=== PATIENT | female | born 1975 ===

== ENCOUNTER 2016-09-02 14:06 | Emergency (ER) | payer SELFPAY ==
[2016-09-02 14:06] VITALS: BMI 28.9
[2016-09-02 14:15] VITALS: BP 118/65; PULSE 78; RESP 18; TEMP 97; O2SAT 100
[2016-09-02] MEDS ORDERED: Sodium Chloride 0.9% 1,000 ML IV STA (15:27)
--- NOTE | 2016-09-02 15:49 | ED PDOC ---
HPI: Female Pain Time Seen by Provider: 09/02/16 14:27 Chief Complaint (Nursing): Female Genitourinary Chief Complaint (Provider): female genitourinary History Per: Loading Inspector (martinez [id number]) History/Exam Limitations: language barrier (surinamese ) Onset/Duration Of Symptoms: Days (x 14) Current Symptoms Are (Timing): Still Present Additional Complaint(s): Dasha Pinedo is a 41 year old female, with a previous medical history of kidney stones, who presents to the ED with complaints of dysuria ongoing for the past 2 weeks. Pt reports associated symptoms of left sided abdominal pain, fevers, chills and nausea. Pt denies any vomiting, diarrhea, chest pain or shortness of breath. Pt reports symptoms are similar to those of kidney stones. Pt denies ever needing to undergo surgery for kidney stones and states she usually passes them on her own. PMD: none provided Abnormal Vaginal Bleeding: No Past Medical History Reviewed: Historical Data, Nursing Documentation, Vital Signs Vital Signs: Last Vital Signs Temp 97.0 F L 09/02/16 14:12 Pulse 78 09/02/16 14:12 Resp 18 09/02/16 14:12 BP 118/65 09/02/16 14:12 Pulse Ox 100 09/02/16 14:12 - Medical History PMH: Arthritis (per old chart but pt denies), Gastritis, Kidney Stones, Pneumonia - Surgical History Surgical History: Cholecystectomy, (x4) - Family History Family History: States: Unknown Family Hx - Immunization History Hx Tetanus Toxoid Vaccination: No Hx Influenza Vaccination: Yes Hx Pneumococcal Vaccination: No - Home Medications Home Medications: Ambulatory Orders Medication Instructions Recorded Naproxen [Naprosyn] 500 mg PO BID PRN #15 tablet 01/30/16 Famotidine [Pepcid] 20 mg PO DAILY PRN #10 tab 05/30/16 Ibuprofen [Motrin Tab] 600 mg PO Q6 PRN #30 tab 05/30/16 Nitrofurantoin Macrocrystals 100 mg PO BID #10 cap 07/03/16 [Macrobid] Ciprofloxacin [Cipro] 500 mg PO BID #14 tab 09/02/16 Ibuprofen [Motrin] 600 mg PO TID PRN #30 tab 09/02/16 Phenazopyridine [Phenazopyridine 200 mg PO TID #6 tab 09/02/16 HCl] - Allergies Allergies/Adverse Reactions: Allergies Allergy/AdvReac Type Severity Reaction Status Date / Time Penicillins Allergy RASH Verified 07/02/16 23:56 Review of Systems ROS Statement: Except As Marked, All Systems Reviewed And Found Negative Constitutional: Positive for: Fever, Chills Cardiovascular: Negative for: Chest Pain Respiratory: Negative for: Shortness of Breath Gastrointestinal: Positive for: Nausea, Abdominal Pain. Negative for: Vomiting , Diarrhea Physical Exam - Reviewed Nursing Documentation Reviewed: Yes Vital Signs Reviewed: Yes - Physical Exam Appears: Positive for: Non-toxic, In Acute Distress (moderate painful ) Head Exam: Positive for: ATRAUMATIC, NORMAL INSPECTION, NORMOCEPHALIC Skin: Positive for: Normal Color, Warm (to touch ), Dry Eye Exam: Positive for: EOMI, Normal appearance, PERRL ENT: Positive for: Normal ENT Inspection Neck: Positive for: Normal, Painless ROM Cardiovascular/Chest: Positive for: Regular Rate, Rhythm Respiratory: Positive for: CNT, Normal Breath Sounds Gastrointestinal/Abdominal: Positive for: Normal Exam, Bowel Sounds, Soft, Tenderness (LLQ) Back: Positive for: R CVA Tenderness Extremity: Positive for: Normal ROM Neurologic/Psych: Positive for: Alert, Oriented - Laboratory Results Result Diagrams: 09/02/16 15:30 09/02/16 15:30 - ECG O2 Sat by Pulse Oximetry: 100 (RA) Pulse Ox Interpretation: Normal Medical Decision Making Medical Decision Making: Initial Impression: UTI clinical pylo r/o obstructive stone Initial Plan: * CT abd pelvis w/o contrast * labs * lact acid * lipase * urine * morphine * IV NS 1,000 ml at 1,000 ml/hr * toradol * zofran * blood culture * urine culture * urinalysis * reevaluation 16:42 CT abd pelvis FINDINGS: LOWER THORAX: There is bibasilar subsegmental atelectasis. LIVER: Normal in size. No gross lesion or ductal dilatation. GALLBLADDER AND BILE DUCTS: Surgically absent. PANCREAS: Normal in size. No gross lesion or ductal dilatation. SPLEEN: Normal in size. ADRENALS: Normal in size without discrete nodule. KIDNEYS AND URETERS: Both kidneys are normal in size without hydronephrosis. There are few punctate nonobstructing stones in both kidneys, the largest in the left upper pole measures 3 mm. There is no hydronephrosis. The ureters are not dilated. VASCULATURE: No aortic aneurysm. BOWEL: The small bowel loops are normal in caliber. There is large amount of stool in the ascending colon and moderate amount of stool in the transverse and left hemicolon. APPENDIX: Normal appendix. PERITONEUM: No free fluid. No free air. LYMPH NODES: There are small subcentimeter lymph nodes in the right lower quadrant, likely reactive. BLADDER: Normal. REPRODUCTIVE: The uterus is normal in size. There is fluid within the endometrial cavity. Please correlate with menstrual history. BONES: Within normal limits for the patient's age. OTHER FINDINGS: None. IMPRESSION: 1. Punctate nonobstructing stones in both kidneys, the largest in the left upper pole measures 3 mm. No evidence of hydronephrosis or obstructive uropathy. 2. Constipation. No evidence of bowel obstruction Scribe Attestation: Documented by Latesha Peterson, acting as a scribe for Flaco Lantigua PA-C. Provider Scribe Attestation: All medical record entries made by the Scribe were at my direction and personally dictated by me. I have reviewed the chart and agree that the record accurately reflects my personal performance of the history, physical exam, medical decision making, and the department course for this patient. I have also personally directed, reviewed, and agree with the discharge instructions and disposition. Labs reviewed with no acute finding. normal LA, UTI. cipro ordered. CT as above with no obstructing stones. discussed with her that she could have passed a stone. given normal LA, no wbc count, no fever and pain controlled no indication for inpatient treatment. will treat for clinical pyelonephritis follow up discussed, return information discussed, _ stable for discharge. Disposition - Clinical Impression Clinical Impression: Dysuria, Pyelonephritis, Renal stone - Patient ED Disposition Is Patient to be Admitted: No Counseled Patient/Family Regarding: Studies Performed, Diagnosis, Need For Followup, Rx Given - Disposition Referrals: Santino Villarreal MD [Medical Doctor] - Disposition: Routine/Home Disposition Time: 19:26 Condition: IMPROVED Additional Instructions: follow up with primary care doctor and urologist return for severe pain,fevers or any new concerns lots of fluids Prescriptions: Ciprofloxacin [Cipro] 500 mg PO BID #14 tab Ibuprofen [Motrin] 600 mg PO TID PRN #30 tab PRN Reason: Other Phenazopyridine [Phenazopyridine HCl] 200 mg PO TID #6 tab Instructions: Renal Colic (ED), Kidney Stones (ED), Acute Pyelonephritis (ED) Print Language: KISWAHILI
[2016-09-02 16:09] LABS: BASO % 0.5 % (0.0-2.0); EOS # 0.4 K/uL (0.0-0.7); EOS % 4.5 % (0.0-4.0); HEMATOCRIT 36.3 % (34.0-47.0); LYMPH # 1.7 K/uL (1.0-4.3); LYMPH % 19.6 % (20.0-40.0); MEAN CELL VOLUME 82.9 fl (81.0-99.0); MEAN CORPUSCULAR HGB CONC 32.6 g/dL (33.0-37.0); MONO # 0.5 K/uL (0.0-0.8); MONO % 6.2 % (0.0-10.0); NEUT # 5.9 K/uL (1.8-7.0); NEUT % 69.2 % (50.0-75.0); RED CELL DISTRIBUTION WIDTH 18.3 % (11.5-14.5); WHITE BLOOD COUNT 8.6 K/uL (4.8-10.8)
[2016-09-02 16:19] LABS: ALB/GLOB RATIO 1.3 (1.0-2.1); ALKALINE PHOSPHATASE 106 U/L (38-126); ALT/SGPT 34 U/L (9-52); AST/SGOT 25 U/L (14-36); BILIRUBIN,TOTAL < 0.1 mg/dl (0.2-1.3); BLOOD UREA NITROGEN 14 mg/dl (7-17); CARBON DIOXIDE 27 mmol/L (22-30); CHLORIDE 104 mmol/L (98-107); GFR AFRICAN-AMERICAN > 60; GLUCOSE,RANDOM 104 mg/dL (65-105); LIPASE 67 U/L (23-300); POTASSIUM 4.2 MMOL/L (3.6-5.0); SODIUM 136 mmol/l (132-148); TOTAL PROTEIN 6.9 G/DL (6.3-8.2)
--- NOTE | 2016-09-02 16:43 | CT ---
PROCEDURE: CT Abdomen and Pelvis without intravenous contrast HISTORY: Left flank pain and dysuria COMPARISON: 07/03/2016 TECHNIQUE: Helical CT scan of the abdomen and pelvis was performed for targeted evaluation of urinary calculi without administration of oral or intravenous contrast. Coronal and sagittal reformatted images were obtained. Radiation dose: Total exam DLP = 807.11 mGy-cm. FINDINGS: LOWER THORAX: There is bibasilar subsegmental atelectasis. LIVER: Normal in size. No gross lesion or ductal dilatation. GALLBLADDER AND BILE DUCTS: Surgically absent. PANCREAS: Normal in size. No gross lesion or ductal dilatation. SPLEEN: Normal in size. ADRENALS: Normal in size without discrete nodule. KIDNEYS AND URETERS: Both kidneys are normal in size without hydronephrosis. There are few punctate nonobstructing stones in both kidneys, the largest in the left upper pole measures 3 mm. There is no hydronephrosis. The ureters are not dilated. VASCULATURE: No aortic aneurysm. BOWEL: The small bowel loops are normal in caliber. There is large amount of stool in the ascending colon and moderate amount of stool in the transverse and left hemicolon. APPENDIX: Normal appendix. PERITONEUM: No free fluid. No free air. LYMPH NODES: There are small subcentimeter lymph nodes in the right lower quadrant, likely reactive. BLADDER: Normal. REPRODUCTIVE: The uterus is normal in size. There is fluid within the endometrial cavity. Please correlate with menstrual history. BONES: Within normal limits for the patient's age. OTHER FINDINGS: None. IMPRESSION: 1. Punctate nonobstructing stones in both kidneys, the largest in the left upper pole measures 3 mm. No evidence of hydronephrosis or obstructive uropathy. 2. Constipation. No evidence of bowel obstruction
[2016-09-02 17:05] LABS: RBC URINE 11 /hpf (0-3); URINE BACTERIA FEW (<OCC); URINE BILIRUBIN NEGATIVE (NEGATIVE); URINE BLOOD SMALL (NEGATIVE); URINE COLOR AMBER (YELLOW); URINE GLUCOSE (UA) NEG (Normal); URINE KETONE NEGATIVE (NEGATIVE); URINE LEUKOCYTE ESTERASE TRACE Leu/uL (Negative); URINE PROTEIN NEGATIVE (NEGATIVE); WBC URINE 31 /hpf (0-5)
[2016-09-02] MEDS ORDERED: Ciprofloxacin 400mg/200ml D5W 200 ML IVPB STA (17:42)
[2016-09-02] MEDS ORDERED: Ciprofloxacin 400mg/200ml D5W 200 ML IVPB ONE (17:51)
== END 2016-09-02 19:27 | disposition home or self-care (01) ==
LOC: H.ER 14:06
DX: N12 Tubulo-interstitial nephritis, not specified as acute or chronic (principal); N20.0 Calculus of kidney; R30.0 Dysuria

== ENCOUNTER 2016-09-23 14:43 | Emergency (ER) | payer OTHER, SELFPAY ==
[2016-09-23 14:43] VITALS: BMI 28.9
[2016-09-23 14:56] VITALS: BP 115/65; PULSE 68; RESP 18; TEMP 98.1; O2SAT 100
--- NOTE | 2016-09-23 15:11 | ED PDOC ---
HPI: General Adult Time Seen by Provider: 09/23/16 15:00 Chief Complaint (Nursing): Female Genitourinary Chief Complaint (Provider): back pain History Per: Patient History/Exam Limitations: no limitations Additional Complaint(s): 41yo female comes to the ED complaining of back pain, dysuria for 2 days. States she had similar symptoms 15 days ago when she was diagnosed with kidney stones. She has chills and nausea but not vomit. Patient recently started Bactrim per Dr. Joseph urology. She is also taking tylenol, advil but pain is still there. PMD: kendall molina [facility] Past Medical History Reviewed: Historical Data, Nursing Documentation, Vital Signs Vital Signs: Last Vital Signs Temp 98.1 F 09/23/16 14:53 Pulse 68 09/23/16 14:53 Resp 18 09/23/16 14:53 BP 115/65 09/23/16 14:53 Pulse Ox 100 09/23/16 15:19 - Medical History PMH: Arthritis (per old chart but pt denies), Gastritis, Kidney Stones, Pneumonia - Surgical History Surgical History: Cholecystectomy, (x4) - Family History Family History: States: Unknown Family Hx - Immunization History Hx Tetanus Toxoid Vaccination: No Hx Influenza Vaccination: Yes Hx Pneumococcal Vaccination: No - Home Medications Home Medications: Ambulatory Orders Medication Instructions Recorded Naproxen [Naprosyn] 500 mg PO BID PRN #15 tablet 01/30/16 Famotidine [Pepcid] 20 mg PO DAILY PRN #10 tab 05/30/16 Ibuprofen [Motrin Tab] 600 mg PO Q6 PRN #30 tab 05/30/16 Nitrofurantoin Macrocrystals 100 mg PO BID #10 cap 07/03/16 [Macrobid] Ciprofloxacin [Cipro] 500 mg PO BID #14 tab 09/02/16 Ibuprofen [Motrin] 600 mg PO TID PRN #30 tab 09/02/16 Phenazopyridine [Phenazopyridine 200 mg PO TID #6 tab 09/02/16 HCl] oxyCODONE/Acetaminophen [Percocet 1 tab PO Q6 PRN #12 tab 09/23/16 5/325 mg Tab] - Allergies Allergies/Adverse Reactions: Allergies Allergy/AdvReac Type Severity Reaction Status Date / Time Penicillins Allergy RASH Verified 07/02/16 23:56 Review of Systems ROS Statement: Except As Marked, All Systems Reviewed And Found Negative Genitourinary Female: Positive for: Dysuria Musculoskeletal: Positive for: Back Pain Physical Exam - Reviewed Nursing Documentation Reviewed: Yes Vital Signs Reviewed: Yes - Physical Exam Appears: Positive for: Well, Non-toxic, No Acute Distress Head Exam: Positive for: ATRAUMATIC, NORMAL INSPECTION, NORMOCEPHALIC Skin: Positive for: Warm, Dry Eye Exam: Positive for: EOMI, PERRL Cardiovascular/Chest: Positive for: Regular Rate, Rhythm Respiratory: Positive for: Normal Breath Sounds. Negative for: Rales, Rhonchi, Wheezing Gastrointestinal/Abdominal: Positive for: Soft. Negative for: Tenderness Back: Positive for: Other (bilateral CVA tenderness right greater than left) - Laboratory Results Result Diagrams: 09/23/16 15:30 09/23/16 15:30 - ECG O2 Sat by Pulse Oximetry: 100 (RA) Pulse Ox Interpretation: Normal Medical Decision Making Medical Decision Making: CT abd/pel IMPRESSION from 09/02/16: 1. Punctate nonobstructing stones in both kidneys, the largest in the left upper pole measures 3 mm. No evidence of hydronephrosis or obstructive uropathy. 2. Constipation. No evidence of bowel obstruction 18[address] CT abdomen [address] Disposition - Clinical Impression Clinical Impression: Urinary tract infection - Patient ED Disposition Is Patient to be Admitted: No Doctor Will See Patient In The: Office Counseled Patient/Family Regarding: Studies Performed, Diagnosis, Need For Followup - Disposition Referrals: Alejandro Joseph Jr., MD [Staff Provider] - Disposition: Routine/Home Disposition Time: 19:00 Condition: GOOD Additional Instructions: Continue bactrim at home. Return for worsening. Follow up with your PCP in 2-3 days. Prescriptions: oxyCODONE/Acetaminophen [Percocet 5/325 mg Tab] 1 tab PO Q6 PRN #12 tab PRN Reason: Pain, Moderate (4-7) Instructions: Urinary Tract Infection in Women (ED) Forms: [facility] ED School/Work Excuse Print Language: WOLOF Additional Comments - Additional Comments Additional Comments: Scribe Attestation: Documented by Panchito Ziegler acting as a scribe for Gerard Sanders MD. Scribe Attestation: All medical record entries made by the Scribe were at my direction and personally dictated by me. I have reviewed the chart and agree that the record accurately reflects my personal performance of the history, physical exam, medical decision making, and the department course for this patient. I have also personally directed, reviewed, and agree with the discharge instructions and disposition.
[2016-09-23] MEDS ORDERED: Sodium Chloride 0.9% 1,000 ML IV STA (15:17)
[2016-09-23 16:00] LABS: BASO % 0.5 % (0.0-2.0); EOS # 0.3 K/uL (0.0-0.7); EOS % 3.6 % (0.0-4.0); HEMATOCRIT 36.8 % (34.0-47.0); LYMPH # 1.7 K/uL (1.0-4.3); LYMPH % 18.9 % (20.0-40.0); MEAN CELL VOLUME 83.4 fl (81.0-99.0); MEAN CORPUSCULAR HEMOGLOBIN 27.6 pg (27.0-31.0); MEAN PLATELET VOLUME 7.8 fl (7.2-11.7); MONO # 0.5 K/uL (0.0-0.8); MONO % 5.1 % (0.0-10.0); NEUT # 6.5 K/uL (1.8-7.0); NEUT % 71.9 % (50.0-75.0); RED CELL DISTRIBUTION WIDTH 16.3 % (11.5-14.5); WHITE BLOOD COUNT 9.1 K/uL (4.8-10.8)
[2016-09-23 16:12] LABS: RBC URINE 3 /hpf (0-3); URINE BILIRUBIN NEGATIVE (NEGATIVE); URINE BLOOD NEGATIVE (NEGATIVE); URINE COLOR BLUE (YELLOW); URINE GLUCOSE (UA) NEG (Normal); URINE KETONE NEGATIVE (NEGATIVE); URINE LEUKOCYTE ESTERASE SMALL Leu/uL (Negative); URINE PROTEIN NEGATIVE (NEGATIVE); URINE UROBILINOGEN 0.2-1.0 mg/dL (0.2-1.0); WBC URINE 24 /hpf (0-5)
[2016-09-23 16:18] LABS: BLOOD UREA NITROGEN 13 mg/dl (7-17); CALCIUM 9.2 mg/dL (8.4-10.2); CARBON DIOXIDE 25 mmol/L (22-30); CHLORIDE 105 mmol/L (98-107); GFR AFRICAN-AMERICAN > 60; GLUCOSE,RANDOM 110 mg/dL (65-105); POTASSIUM 4.1 MMOL/L (3.6-5.0); SODIUM 142 mmol/l (132-148)
[2016-09-23] MEDS ORDERED: Iohexol 300 100 ML IJ ONE (17:21)
[2016-09-23] MEDS ORDERED: Sodium Chloride 0.9% 50 ML IV ONE (17:21)
--- NOTE | 2016-09-23 18:34 | CT ---
PROCEDURE: CT Abdomen and Pelvis with contrast HISTORY: back pain COMPARISON: None. TECHNIQUE: Contrast dose: 90 cc of Omni 300 Radiation dose: Total exam DLP = 875 mGy-cm. This CT exam was performed using one or more of the following dose reduction techniques: Automated exposure control, adjustment of the mA and/or kV according to patient size, and/or use of iterative reconstruction technique. FINDINGS: LOWER THORAX: Unremarkable. LIVER: Unremarkable. No gross lesion or ductal dilatation. GALLBLADDER AND BILE DUCTS: Unremarkable. PANCREAS: Unremarkable. No gross lesion or ductal dilatation. SPLEEN: Unremarkable. ADRENALS: Unremarkable. No mass. KIDNEYS AND URETERS: Unremarkable. No hydronephrosis. No solid mass. Small nonobstructing stone in the lower pole of the right kidney. VASCULATURE: Unremarkable. No aortic aneurysm. BOWEL: Unremarkable. No obstruction. No gross mural thickening. APPENDIX: Normal appendix. PERITONEUM: Unremarkable. No free fluid. No free air. LYMPH NODES: Unremarkable. No enlarged lymph nodes. BLADDER: Unremarkable. REPRODUCTIVE: Unremarkable. BONES: No acute fracture. OTHER FINDINGS: None. IMPRESSION: Unremarkable contrast enhanced CT of the abdomen and pelvis.
== END 2016-09-23 20:30 | disposition home or self-care (01) ==
LOC: H.ER 14:43
DX: N39.0 Urinary tract infection, site not specified (principal); M54.9 Dorsalgia, unspecified; R11.0 Nausea; R30.0 Dysuria

== ENCOUNTER 2016-11-09 14:38 | Emergency (ER) | payer SELFPAY ==
[2016-11-09 14:39] VITALS: BMI 28.9
[2016-11-09] MEDS ORDERED: Sodium Chloride 0.9% 1,000 ML IV STA (16:54)
[2016-11-09] MEDS ORDERED: Alum-Mag Hydrox-Simethicone Susp (30 mL) PO STA (17:18)
[2016-11-09] MEDS ORDERED: Alum-Mag Hydrox-Simethicone Susp (30 mL) ONE (17:19)
[2016-11-09 17:56] LABS: BASO # 0.1 K/uL (0.0-0.2); BASO % 0.9 % (0.0-2.0); EOS # 0.3 K/uL (0.0-0.7); HEMATOCRIT 38.6 % (34.0-47.0); LYMPH # 1.6 K/uL (1.0-4.3); LYMPH % 21.8 % (20.0-40.0); MEAN CELL VOLUME 84.7 fl (81.0-99.0); MEAN CORPUSCULAR HEMOGLOBIN 27.4 pg (27.0-31.0); MEAN CORPUSCULAR HGB CONC 32.3 g/dL (33.0-37.0); MEAN PLATELET VOLUME 7.9 fl (7.2-11.7); MONO # 0.5 K/uL (0.0-0.8); MONO % 6.5 % (0.0-10.0); NEUT # 4.9 K/uL (1.8-7.0); NEUT % 66.8 % (50.0-75.0); NRBC % 0.1 % (0.0-0.0); RED CELL DISTRIBUTION WIDTH 14.7 % (11.5-14.5); WHITE BLOOD COUNT 7.3 K/uL (4.8-10.8)
[2016-11-09 18:01] LABS: RBC URINE 2 /hpf (0-3); URINE BILIRUBIN NEGATIVE (NEGATIVE); URINE BLOOD SMALL (NEGATIVE); URINE COLOR AMBER (YELLOW); URINE GLUCOSE (UA) NEG (Normal); URINE KETONE NEGATIVE (NEGATIVE); URINE LEUKOCYTE ESTERASE MOD Leu/uL (Negative); URINE PROTEIN NEGATIVE (NEGATIVE); URINE UROBILINOGEN 0.2-1.0 mg/dL (0.2-1.0); WBC URINE 22 /hpf (0-5)
[2016-11-09 18:03] LABS: URINE BACTERIA FEW (<OCC)
[2016-11-09 18:04] LABS: ALB/GLOB RATIO 1.4 (1.0-2.1); ALKALINE PHOSPHATASE 74 U/L (38-126); ALT/SGPT 36 U/L (9-52); AST/SGOT 31 U/L (14-36); BILIRUBIN,TOTAL 0.3 mg/dl (0.2-1.3); BLOOD UREA NITROGEN 12 mg/dl (7-17); CARBON DIOXIDE 25 mmol/L (22-30); CHLORIDE 104 mmol/L (98-107); GFR AFRICAN-AMERICAN > 60; GLUCOSE,RANDOM 91 mg/dL (65-105); LIPASE 90 U/L (23-300); SODIUM 139 mmol/l (132-148); TOTAL PROTEIN 7.5 G/DL (6.3-8.2)
--- NOTE | 2016-11-09 18:49 | ED PDOC ---
HPI: Abdomen Time Seen by Provider: 11/09/16 16:50 Chief Complaint (Nursing): Abdominal Pain Chief Complaint (Provider): Abdominal Pain History Per: Patient History/Exam Limitations: no limitations Onset/Duration Of Symptoms: Days (x3) Current Symptoms Are (Timing): Still Present Additional Complaint(s): Dasha Pinedo is a 41 year old female with a history of gastritis that presents to the ED with a chief complaint of intermittent, non-radiating, burning, epigastric pain that she has had for the past three days, as well as non-radiating suprapubic discomfort described as "pressure" with associated dysuria that she has had for the past one day. Patient reports that she took Motrin at home, but that it did not help to relieve her symptoms. She denies any fever, chills, or back pain, and does not take any daily medications. Past Medical History Reviewed: Historical Data, Nursing Documentation, Vital Signs Vital Signs: Last Vital Signs Temp 98.7 F 11/09/16 15:13 Pulse 75 11/09/16 15:13 Resp 20 11/09/16 15:13 BP 104/64 11/09/16 15:13 Pulse Ox 100 11/09/16 15:13 - Medical History PMH: Arthritis (per old chart but pt denies), Gastritis, Kidney Stones, Pneumonia - Surgical History Surgical History: Cholecystectomy, (x4) - Family History Family History: States: Unknown Family Hx - Social History Current smoker - smoking cessation education provided: No Alcohol: None Drugs: Denies - Immunization History Hx Tetanus Toxoid Vaccination: No Hx Influenza Vaccination: Yes Hx Pneumococcal Vaccination: No - Home Medications Home Medications: Ambulatory Orders Medication Instructions Recorded Naproxen [Naprosyn] 500 mg PO BID PRN #15 tablet 01/30/16 Famotidine [Pepcid] 20 mg PO DAILY PRN #10 tab 05/30/16 Ibuprofen [Motrin Tab] 600 mg PO Q6 PRN #30 tab 05/30/16 Nitrofurantoin Macrocrystals 100 mg PO BID #10 cap 07/03/16 [Macrobid] Ciprofloxacin [Cipro] 500 mg PO BID #14 tab 09/02/16 Ibuprofen [Motrin] 600 mg PO TID PRN #30 tab 09/02/16 Phenazopyridine [Phenazopyridine 200 mg PO TID #6 tab 09/02/16 HCl] oxyCODONE/Acetaminophen [Percocet 1 tab PO Q6 PRN #12 tab 09/23/16 5/325 mg Tab] Ciprofloxacin [Cipro] 500 mg PO BID #10 tab 11/09/16 Famotidine [Pepcid] 20 mg PO BID #28 tab 11/09/16 - Allergies Allergies/Adverse Reactions: Allergies Allergy/AdvReac Type Severity Reaction Status Date / Time Penicillins Allergy RASH Verified 07/02/16 23:56 Review of Systems Constitutional: Negative for: Fever, Chills Gastrointestinal: Positive for: Abdominal Pain (epigastric pain), Other ( suprapubic discomfort) Genitourinary Female: Positive for: Dysuria Musculoskeletal: Negative for: Back Pain Physical Exam - Reviewed Nursing Documentation Reviewed: Yes Vital Signs Reviewed: Yes - Physical Exam Appears: Positive for: Non-toxic, No Acute Distress Head Exam: Positive for: ATRAUMATIC, NORMOCEPHALIC Skin: Positive for: Normal Color, Warm Eye Exam: Positive for: Normal appearance, EOMI, PERRL Cardiovascular/Chest: Positive for: Regular Rate, Rhythm. Negative for: Murmur Respiratory: Positive for: Normal Breath Sounds. Negative for: Wheezing Gastrointestinal/Abdominal: Positive for: Soft, Tenderness (mild epigastric and suprapubic tenderness). Negative for: Guarding, Rebound Back: Positive for: Normal Inspection. Negative for: L CVA Tenderness, R CVA Tenderness Neurologic/Psych: Positive for: Alert, Oriented - Laboratory Results Result Diagrams: 11/09/16 17:45 11/09/16 17:45 - ECG O2 Sat by Pulse Oximetry: 100 (RA) Pulse Ox Interpretation: Normal Medical Decision Making Medical Decision Makin:50 Impression: Gastritis/UTI Plan: * Aluminum Hydroxide/Magnesium (30 ml PO) * Pepcid 20 mg PO * Urine * Urine Culture * Reevaluation 18:43 Patient given Rx for Cipro and Pepcid, advised to follow up with clinic. Patient stable for discharge home. Scribe Attestation: Documented by Sophia Schwarz, acting as a scribe for Anna Moe PA-C. Provider Scribe Attestation: All medical record entries made by the Scribe were at my direction and personally dictated by me. I have reviewed the chart and agree that the record accurately reflects my personal performance of the history, physical exam, medical decision making, and the department course for this patient. I have also personally directed, reviewed, and agree with the discharge instructions and disposition. Disposition - Clinical Impression Clinical Impression: Gastritis, UTI (urinary tract infection) - Patient ED Disposition Is Patient to be Admitted: No Counseled Patient/Family Regarding: Rx Given - Disposition Referrals: [facility] [Outside] Disposition Time: 18:43 Condition: STABLE Prescriptions: Ciprofloxacin [Cipro] 500 mg PO BID #10 tab Famotidine [Pepcid] 20 mg PO BID #28 tab Instructions: Gastritis (ED), Urinary Tract Infection in Women (ED) Print Language: ICELANDIC
[2016-11-09 18:59] VITALS: BP 110/68; PULSE 70; RESP 18; TEMP 98
[2016-11-09 19:03] VITALS: O2SAT 100
== END 2016-11-09 19:01 | disposition home or self-care (01) ==
LOC: H.ER 14:38
DX: K29.70 Gastritis, unspecified, without bleeding (principal); N39.0 Urinary tract infection, site not specified; R30.0 Dysuria

== ENCOUNTER 2017-02-25 23:35 | Emergency (ER) | payer OTHER ==
[2017-02-25 23:35] VITALS: BMI 28.9
[2017-02-25 23:51] VITALS: BP 115/67; PULSE 74; RESP 18; TEMP 98.6; O2SAT 100
[2017-02-26 00:33] LABS: BASO # 0.1 K/uL (0.0-0.2); BASO % 1.1 % (0.0-2.0); EOS # 0.4 K/uL (0.0-0.7); EOS % 5.9 % (0.0-4.0); HEMATOCRIT 34.8 % (34.0-47.0); LYMPH # 2.1 K/uL (1.0-4.3); MEAN CORPUSCULAR HEMOGLOBIN 26.7 pg (27.0-31.0); MEAN CORPUSCULAR HGB CONC 32.7 g/dL (33.0-37.0); MEAN PLATELET VOLUME 7.5 fl (7.2-11.7); MONO # 0.7 K/uL (0.0-0.8); MONO % 9.8 % (0.0-10.0); NEUT # 3.9 K/uL (1.8-7.0); NEUT % 54.2 % (50.0-75.0); NRBC % 0.1 % (0.0-0.0); RED CELL DISTRIBUTION WIDTH 14.6 % (11.5-14.5); WHITE BLOOD COUNT 7.2 K/uL (4.8-10.8)
[2017-02-26 00:36] LABS: MEAN CELL VOLUME 81.6 fl (81.0-99.0)
--- NOTE | 2017-02-26 00:36 | ED PDOC ---
HPI: Abdomen Time Seen by Provider: 02/25/17 23:59 Chief Complaint (Nursing): Abdominal Pain Chief Complaint (Provider): Abdominal Pain History Per: Patient History/Exam Limitations: no limitations Onset/Duration Of Symptoms: Days (x2) Current Symptoms Are (Timing): Still Present Additional Complaint(s): Dasha Pinedo is a 41 year old female, status post colostomy, who presents to the emergency department with a complaint of a "cramping" abdominal pain associated with constipation ongoing for 2 days. Denied nausea, vomiting, fever or chills. PMD: Radhika Toussaint MD Past Medical History Reviewed: Historical Data, Nursing Documentation, Vital Signs Vital Signs: Last Vital Signs Temp 98.6 F 02/25/17 23:47 Pulse 74 02/25/17 23:47 Resp 18 02/25/17 23:47 BP 115/67 02/25/17 23:47 Pulse Ox 100 02/26/17 00:38 - Medical History PMH: Arthritis (per old chart but pt denies), Gastritis, Kidney Stones, Pneumonia - Surgical History Surgical History: Cholecystectomy, (x4) - Family History Family History: States: Unknown Family Hx - Immunization History Hx Tetanus Toxoid Vaccination: No Hx Influenza Vaccination: Yes Hx Pneumococcal Vaccination: No - Home Medications Home Medications: Ambulatory Orders Medication Instructions Recorded Naproxen [Naprosyn] 500 mg PO BID PRN #15 tablet 01/30/16 Famotidine [Pepcid] 20 mg PO DAILY PRN #10 tab 05/30/16 Ibuprofen [Motrin Tab] 600 mg PO Q6 PRN #30 tab 05/30/16 Nitrofurantoin Macrocrystals 100 mg PO BID #10 cap 07/03/16 [Macrobid] Ciprofloxacin [Cipro] 500 mg PO BID #14 tab 09/02/16 Ibuprofen [Motrin] 600 mg PO TID PRN #30 tab 09/02/16 Phenazopyridine [Phenazopyridine 200 mg PO TID #6 tab 09/02/16 HCl] oxyCODONE/Acetaminophen [Percocet 1 tab PO Q6 PRN #12 tab 09/23/16 5/325 mg Tab] Ciprofloxacin [Cipro] 500 mg PO BID #10 tab 11/09/16 Famotidine [Pepcid] 20 mg PO BID #28 tab 11/09/16 Dicyclomine [Bentyl] 10 mg PO QID #20 cap 02/26/17 Docusate [Colace] 100 mg PO BID #20 cap 02/26/17 Polyethylene Glycol 3350 [Miralax] 17 gm PO DAILY #12 powd.pack 02/26/17 - Allergies Allergies/Adverse Reactions: Allergies Allergy/AdvReac Type Severity Reaction Status Date / Time Penicillins Allergy RASH Verified 07/02/16 23:56 Review of Systems ROS Statement: Except As Marked, All Systems Reviewed And Found Negative Constitutional: Negative for: Fever, Chills Gastrointestinal: Positive for: Abdominal Pain ("pressure"), Constipation, Other (retention). Negative for: Nausea, Vomiting Physical Exam - Reviewed Nursing Documentation Reviewed: Yes Vital Signs Reviewed: Yes - Physical Exam Appears: Positive for: Well, Non-toxic, No Acute Distress Head Exam: Positive for: ATRAUMATIC, NORMAL INSPECTION, NORMOCEPHALIC Cardiovascular/Chest: Positive for: Regular Rate, Rhythm. Negative for: Chest Non Tender Respiratory: Positive for: Normal Breath Sounds. Negative for: Crackles, Rales , Rhonchi, Wheezing, Respiratory Distress Gastrointestinal/Abdominal: Positive for: Bowel Sounds, Soft, Tenderness ( minimal mild RUQ). Negative for: Normal Exam Neurologic/Psych: Positive for: Alert, Oriented - Laboratory Results Result Diagrams: 02/26/17 00:15 02/26/17 00:20 - ECG O2 Sat by Pulse Oximetry: 100 (RA) Pulse Ox Interpretation: Normal Medical Decision Making Medical Decision Making: Initial Impression: Constipation Initial Plan: * BMP * Lipase * CBC * Bentyl 20mg PO * Enulose 20gm PO 3AM: Pt. feeling better, informed of findings. Will d/c home w/ return precautions. Scribe Attestation: Documented by Monica Recio, acting as a scribe for Garrett Abbey MD. Provider Scribe Attestation: All medical record entries made by the Scribe were at my direction and personally dictated by me. I have reviewed the chart and agree that the record accurately reflects my personal performance of the history, physical exam, medical decision making, and the department course for this patient. I have also personally directed, reviewed, and agree with the discharge instructions and disposition. Disposition - Clinical Impression Clinical Impression: Constipation - Disposition Disposition: Routine/Home Disposition Time: 03:00 Condition: STABLE Prescriptions: Dicyclomine [Bentyl] 10 mg PO QID #20 cap Docusate [Colace] 100 mg PO BID #20 cap Polyethylene Glycol 3350 [Miralax] 17 gm PO DAILY #12 powd.pack Instructions: Constipation (ED) Forms: [facility] (Greenlandic) Print Language: KOREAN
[2017-02-26 00:42] LABS: BLOOD UREA NITROGEN 12 mg/dl (7-17); CARBON DIOXIDE 25 mmol/L (22-30); CHLORIDE 103 mmol/L (98-107); GFR AFRICAN-AMERICAN > 60; GLUCOSE,RANDOM 100 mg/dL (65-105); LIPASE 116 U/L (23-300); POTASSIUM 3.9 MMOL/L (3.6-5.0); SODIUM 136 mmol/l (132-148)
--- NOTE | 2017-02-26 12:30 | RAD ---
PROCEDURE: Radiographs of the chest and abdomen (obstructive series) HISTORY: abd pain, hx of cholecystectomy COMPARISON: No prior. TECHNIQUE: AP radiograph of the chest, with upright and supine radiographs of the abdomen. FINDINGS: CHEST: Lungs: Clear. Cardiovascular: Normal size heart. No pulmonary vascular congestion. Pleura: No pleural fluid. No pneumothorax. Other findings: None. ABDOMEN AND PELVIS: Bowel: Unremarkable bowel gas pattern. No evidence of mechanical obstruction. Free air: None. Bones: Unremarkable. Other findings: None. IMPRESSION: Unremarkable radiographs of chest and abdomen. No evidence of mechanical bowel obstruction.
== END 2017-02-26 03:48 | disposition home or self-care (01) ==
LOC: H.ER 23:35
DX: K59.00 Constipation, unspecified (principal)

== ENCOUNTER 2017-08-07 19:21 | Emergency (ER) | payer OTHER ==
[2017-08-07 19:22] VITALS: BMI 28.9
[2017-08-07 19:44] VITALS: RESP 18; O2SAT 100
--- NOTE | 2017-08-07 20:29 | ED PDOC ---
HPI: Back <Tamara Orourke Y - Last Filed: 08/07/17 22:57> History Per: Patient Additional Complaint(s): 41 y/o F presents to ED c/o lower back pain that exacerbated 2 days ago. Pain is sharp and dull, midline, 8/10 intensity, radiates through left posterior leg til L plantar area of foot and associated with L leg paresthesias. Pt reports pain started 2 months ago, was tolerable, became daily and progressively aggravated. Pt also reports inability to urinate since 2 days ago, only drops of urine comes out and associated with dysuria. No Hx of STDs but reports Hx of frequent UTI, once or twice every year. LMP 07/16/17. Pt denies fever, headache , dizziness, CP, SOB, abdominal pain, nausea, rash, vaginal discharge or change in bowel movement. Allergies: Penicillin PMHx: gastritis, nephrolithiasis. PSHx: Cholecystectomy and . FHx: NC SHx: No tobacco, alcohol or rec drugs. <Jasper Cantu - Last Filed: 08/07/17 23:40> Time Seen by Provider: 08/07/17 19:54 Chief Complaint (Nursing): Back Pain Past Medical History Vital Signs: Last Vital Signs Temp 98.6 F 08/07/17 19:39 Pulse 87 08/07/17 19:39 Resp 18 08/07/17 19:39 BP 98/67 L 08/07/17 19:39 Pulse Ox 100 08/07/17 21:33 <Tamara Orourke Y - Last Filed: 08/07/17 22:57> Vital Signs: Last Vital Signs Temp 98.6 F 08/07/17 19:39 Pulse 87 08/07/17 19:39 Resp 18 08/07/17 19:39 BP 98/67 L 08/07/17 19:39 Pulse Ox 100 08/07/17 19:39 - Medical History PMH: Arthritis (per old chart but pt denies), Gastritis, Kidney Stones, Pneumonia - Surgical History Surgical History: Cholecystectomy, (x4) - Family History Family History: States: Unknown Family Hx - Social History Current smoker - smoking cessation education provided: No Ex-Smoker (has not smoked in the last 12 months): No Alcohol: None - Immunization History Hx Tetanus Toxoid Vaccination: No Hx Influenza Vaccination: Yes Hx Pneumococcal Vaccination: No <Jasper Cantu - Last Filed: 08/07/17 23:40> - Home Medications Home Medications: Ambulatory Orders Medication Instructions Recorded Naproxen [Naprosyn] 500 mg PO BID PRN #15 tablet 01/30/16 Famotidine [Pepcid] 20 mg PO DAILY PRN #10 tab 05/30/16 Ibuprofen [Motrin Tab] 600 mg PO Q6 PRN #30 tab 05/30/16 Nitrofurantoin Macrocrystals 100 mg PO BID #10 cap 07/03/16 [Macrobid] Ciprofloxacin [Cipro] 500 mg PO BID #14 tab 09/02/16 Ibuprofen [Motrin] 600 mg PO TID PRN #30 tab 09/02/16 Phenazopyridine [Phenazopyridine 200 mg PO TID #6 tab 09/02/16 HCl] oxyCODONE/Acetaminophen [Percocet 1 tab PO Q6 PRN #12 tab 09/23/16 5/325 mg Tab] Ciprofloxacin [Cipro] 500 mg PO BID #10 tab 11/09/16 Famotidine [Pepcid] 20 mg PO BID #28 tab 11/09/16 Dicyclomine [Bentyl] 10 mg PO QID #20 cap 02/26/17 Docusate [Colace] 100 mg PO BID #20 cap 02/26/17 Polyethylene Glycol 3350 [Miralax] 17 gm PO DAILY #12 powd.pack 02/26/17 Nitrofurantoin Macrocrystals 100 mg PO BID #14 cap 08/07/17 [Macrobid] - Allergies Allergies/Adverse Reactions: Allergies Allergy/AdvReac Type Severity Reaction Status Date / Time Penicillins Allergy RASH Verified 08/07/17 19:39 Review of Systems Constitutional: Negative for: Fever, Chills ENT: Negative for: Nose Congestion Cardiovascular: Negative for: Chest Pain, Palpitations Respiratory: Negative for: Cough, Shortness of Breath Gastrointestinal: Negative for: Nausea, Abdominal Pain, Diarrhea Genitourinary Female: Positive for: Dysuria. Negative for: Hematuria, Vaginal Discharge, Vaginal Bleeding Musculoskeletal: Positive for: Back Pain Skin: Negative for: Rash Neurological: Positive for: Numbness <Jasper Cantu - Last Filed: 08/07/17 23:40> Physical Exam - Physical Exam Appears: Positive for: Well, Uncomfortable Head Exam: Positive for: ATRAUMATIC Skin: Positive for: Normal Color Eye Exam: Positive for: EOMI, PERRL ENT: Positive for: Normal ENT Inspection Neck: Positive for: Normal, Painless ROM Cardiovascular/Chest: Positive for: Regular Rate, Rhythm Respiratory: Positive for: Normal Breath Sounds Gastrointestinal/Abdominal: Positive for: Normal Exam, Bowel Sounds, Soft, Tenderness (suprapubic.). Negative for: Organomegaly Back: Positive for: L CVA Tenderness, Vertebral Tenderness (Paraspinal on Lumbar area.). Negative for: R CVA Tenderness Extremity: Positive for: Normal ROM. Negative for: Tenderness DTR - Knee (R): 2+ DTR - Knee (L): 2+ DTR - Ankle (R): 2+ DTR - Ankle (L): 2+ Neurologic/Psych: Positive for: Alert, Oriented Comments: Unable to bear weight on L foot due to pain in back predominantly, gait is abnormal. <Jasper Cantu - Last Filed: 08/07/17 23:40> - Laboratory Results Result Diagrams: 08/07/17 20:51 08/07/17 20:51 <Tamara Orourke - Last Filed: 08/07/17 22:57> - Laboratory Results Result Diagrams: 08/07/17 20:51 08/07/17 20:51 - ECG O2 Sat by Pulse Oximetry: 100 <Jasper Cantu - Last Filed: 08/07/17 23:40> Medical Decision Making Medical Decision Making: Time: 212:12 Abdomen/Pelvis CT FINDINGS: Lower thorax: No acute findings. ABDOMEN: Liver: Unremarkable. Gallbladder and bile ducts: Cholecystectomy. No ductal dilation. Pancreas: Unremarkable. No ductal dilation. Spleen: Unremarkable. No splenomegaly. Adrenals: Unremarkable. No mass. Kidneys and ureters: Tiny right lower pole renal calculus. Tiny left upper pole renal calculus. No hydronephrosis or definite ureteral calculus. Stomach and bowel: Unremarkable. No obstruction. Appendix: No findings to suggest acute appendicitis. PELVIS: Bladder: Unremarkable. No stones. Reproductive: Enlarged uterus. ABDOMEN and PELVIS: Intraperitoneal space: Unremarkable. No free air. No significant fluid collection. Bones/joints: No acute fracture. No dislocation. Soft tissues: Unremarkable. Vasculature: Unremarkable. No abdominal aortic aneurysm. Lymph nodes: Mildly prominent right lower quadrant mesenteric lymph nodes. IMPRESSION: 1. No left hydronephrosis or definite ureteral calculus. 2. Tiny bilateral nonobstructing renal calculi. 3. Enlarged uterus. Pelvic ultrasound can be performed if clinically appropriate. 4. Remainder of findings as above. He did --Patient is feeling better. --Urine labs show UTI. --Patient is stable for discharge. Scribe Attestation: Documented by Butch Bullock acting as a scribe for Tamara Tyler MD MD Scribe Attestation: All medical record entries made by the Scribe were at my direction and personally dictated by me. I have reviewed the chart and agree that the record accurately reflects my personal performance of the history, physical exam, medical decision making, and the department course for this patient. I have also personally directed, reviewed, and agree with the discharge instructions and disposition. <Tamara Orourke Y - Last Filed: 08/07/17 22:57> Medical Decision Makin41 y/o F with a PMHx of nephrolithiasis under evaluation of lower back pain and dysuria. Plan: --IM Toradol --CT scan Abdomen and pelvis. --Urinalysis --Urine Culture --CBC --CMP 21:10 Urine disptick positive for blood and leuko esterase. 21:20 CT abdomen & pelvis showed NO left hydronephrosis or definite ureteral calculus. Tiny bilateral non-obstructing renal calculi. Results discussed with pt. Pt reports improvement with IM Toradol administration. 23: 20 Low BP, will administer IV normal saline bolus. Urinalysis showed WBCs and RBCs. Will discharge pt with Nitrofurantoin prescription and instruction to f/u with PMD within 1 week. Symptoms and urine studies correlate with an acute UTI. --Pt most probably has sciatica, counseled that conservative management should be tried first, follow with PMD for possible physical therapy and pain management. <Jasper Cantu - Last Filed: 08/07/17 23:40> Disposition <Tamara Orourke - Last Filed: 08/07/17 22:57> - Patient ED Disposition Is Patient to be Admitted: No - Disposition Disposition: Routine/Home Disposition Time: 23:37 <Jasper Cantu - Last Filed: 08/07/17 23:40> - Clinical Impression Clinical Impression: UTI (urinary tract infection) - Disposition Condition: IMPROVED Additional Instructions: follow up with your primary doctor in 1- 2days return to the ED with any worsening or concerning symptoms Prescriptions: Nitrofurantoin Macrocrystals [Macrobid] 100 mg PO BID #14 cap Instructions: Urinary Tract Infection, Adult (DC) Forms: [facility] (Albanian), [facility] ED School/Work Excuse
[2017-08-07 21:07] LABS: BASO % 0.6 % (0.0-2.0); EOS # 0.2 K/uL (0.0-0.7); EOS % 2.9 % (0.0-4.0); HEMOGLOBIN 11.9 g/dL (12.0-16.0); LYMPH # 1.5 K/uL (1.0-4.3); LYMPH % 19.6 % (20.0-40.0); MEAN CELL VOLUME 77.2 fl (81.0-99.0); MEAN CORPUSCULAR HEMOGLOBIN 24.6 pg (27.0-31.0); MEAN CORPUSCULAR HGB CONC 31.8 g/dL (33.0-37.0); MONO # 0.8 K/uL (0.0-0.8); MONO % 10.3 % (0.0-10.0); NEUT # 5.1 K/uL (1.8-7.0); NEUT % 66.6 % (50.0-75.0); NRBC % 0.1 % (0.0-0.0); RBC 4.85 Mil/uL (3.80-5.20); RED CELL DISTRIBUTION WIDTH 15.5 % (11.5-14.5); WHITE BLOOD COUNT 7.7 K/uL (4.8-10.8)
--- NOTE | 2017-08-07 21:12 | CT ---
EXAM: CT Abdomen and Pelvis Without Intravenous Contrast CLINICAL HISTORY: 41 years old, female; Pain; Abdominal pain; Flank; Left; Prior surgery; Surgery date: 6+ months; Surgery type: . Gall bladder removed; Additional info: Abd pain TECHNIQUE: Axial computed tomography images of the abdomen and pelvis without intravenous contrast. All CT scans at this facility use one or more dose reduction techniques, viz.: automated exposure control; ma/kV adjustment per patient size (including targeted exams where dose is matched to indication; i.e. head); or iterative reconstruction technique. Coronal and sagittal reformatted images were created and reviewed. COMPARISON: CT - ABD PELVIS IV CONTRAST ONLY 2016-09-23 18:04 FINDINGS: Lower thorax: No acute findings. ABDOMEN: Liver: Unremarkable. Gallbladder and bile ducts: Cholecystectomy. No ductal dilation. Pancreas: Unremarkable. No ductal dilation. Spleen: Unremarkable. No splenomegaly. Adrenals: Unremarkable. No mass. Kidneys and ureters: Tiny right lower pole renal calculus. Tiny left upper pole renal calculus. No hydronephrosis or definite ureteral calculus. Stomach and bowel: Unremarkable. No obstruction. Appendix: No findings to suggest acute appendicitis. PELVIS: Bladder: Unremarkable. No stones. Reproductive: Enlarged uterus. ABDOMEN and PELVIS: Intraperitoneal space: Unremarkable. No free air. No significant fluid collection. Bones/joints: No acute fracture. No dislocation. Soft tissues: Unremarkable. Vasculature: Unremarkable. No abdominal aortic aneurysm. Lymph nodes: Mildly prominent right lower quadrant mesenteric lymph nodes. IMPRESSION: 1. No left hydronephrosis or definite ureteral calculus. 2. Tiny bilateral nonobstructing renal calculi. 3. Enlarged uterus. Pelvic ultrasound can be performed if clinically appropriate. 4. Remainder of findings as above. He did
[2017-08-07 21:13] LABS: ALB/GLOB RATIO 1.3 (1.0-2.1); ALBUMIN 4.1 g/dL (3.5-5.0); ALT/SGPT 34 U/L (9-52); AST/SGOT 27 U/L (14-36); BLOOD UREA NITROGEN 16 mg/dl (7-17); CALCIUM 9.1 mg/dL (8.4-10.2); GFR AFRICAN-AMERICAN > 60; GFR NON-AFRICAN AMERICAN > 60
[2017-08-07 21:43] LABS: SQUAMOUS EPITHIAL 2 /hpf (0-5); URINE BACTERIA RARE (<OCC); URINE BILIRUBIN NEGATIVE (NEGATIVE); URINE BLOOD NEGATIVE (NEGATIVE); URINE CLARITY CLOUDY (Clear); URINE COLOR YELLOW (YELLOW); URINE GLUCOSE (UA) NEG (Normal); URINE LEUKOCYTE ESTERASE MOD Leu/uL (Negative); URINE NITRATE NEGATIVE (NEGATIVE); URINE PROTEIN 30 mg/dL (NEGATIVE); URINE UROBILINOGEN 0.2-1.0 mg/dL (0.2-1.0)
[2017-08-07] MEDS ORDERED: Sodium Chloride 0.9% 1,000 ML IV SCH (23:15)
[2017-08-07 23:51] VITALS: BP 105/65; PULSE 65; TEMP 98
== END 2017-08-07 23:52 | disposition home or self-care (01) ==
LOC: H.ER 19:21
DX: N39.0 Urinary tract infection, site not specified (principal); Z87.442 Personal history of urinary calculi; Z88.0 Allergy status to penicillin; N85.2 Hypertrophy of uterus
CPT/HCPCS: 74176; 80053; 81003; 81025; 85025; 87086; 99283; J1885; J7040

== ENCOUNTER 2017-08-18 22:39 | Emergency (ER) | payer OTHER ==
[2017-08-18 22:39] VITALS: BMI 28.9
[2017-08-18 22:47] VITALS: TEMP 98.6; O2SAT 100
[2017-08-19 00:04] LABS: BASO % 0.6 % (0.0-2.0); EOS # 0.1 K/uL (0.0-0.7); HEMOGLOBIN 11.5 g/dL (12.0-16.0); LYMPH # 0.9 K/uL (1.0-4.3); LYMPH % 20.3 % (20.0-40.0); MEAN CELL VOLUME 75.9 fl (81.0-99.0); MEAN CORPUSCULAR HEMOGLOBIN 24.5 pg (27.0-31.0); MEAN CORPUSCULAR HGB CONC 32.3 g/dL (33.0-37.0); MEAN PLATELET VOLUME 7.8 fl (7.2-11.7); MONO # 0.4 K/uL (0.0-0.8); MONO % 9.6 % (0.0-10.0); NEUT # 3.2 K/uL (1.8-7.0); NEUT % 67.5 % (50.0-75.0); NRBC % 0.5 % (0.0-0.0); RBC 4.7 Mil/uL (3.80-5.20); RED CELL DISTRIBUTION WIDTH 15.8 % (11.5-14.5); WHITE BLOOD COUNT 4.7 K/uL (4.8-10.8)
[2017-08-19 00:10] LABS: ALB/GLOB RATIO 1.2 (1.0-2.1); ALBUMIN 3.7 g/dL (3.5-5.0); ALT/SGPT 35 U/L (9-52); AST/SGOT 30 U/L (14-36); BLOOD UREA NITROGEN 14 mg/dl (7-17); CALCIUM 8.6 mg/dL (8.4-10.2); GFR AFRICAN-AMERICAN > 60; GFR NON-AFRICAN AMERICAN > 60; LIPASE 75 U/L (23-300)
[2017-08-19 00:25] LABS: SQUAMOUS EPITHIAL 3 /hpf (0-5); URINE BILIRUBIN NEGATIVE (NEGATIVE); URINE BLOOD NEGATIVE (NEGATIVE); URINE CLARITY SLIGHTY-CLOUDY (Clear); URINE COLOR YELLOW (YELLOW); URINE GLUCOSE (UA) NEG (Normal); URINE LEUKOCYTE ESTERASE NEG Leu/uL (Negative); URINE PROTEIN NEGATIVE (NEGATIVE); URINE UROBILINOGEN 0.2-1.0 mg/dL (0.2-1.0)
--- NOTE | 2017-08-19 04:53 | US ---
EXAM: US Abdomen Complete CLINICAL HISTORY: 41 years old, female; Pain; Abdominal pain; Epigastric; Prior surgery; Surgery date: 6+ months; Surgery type: See us ws; Additional info: Luq, ruq pain TECHNIQUE: Real-time ultrasound of the abdomen (complete) with image documentation. COMPARISON: CT - ABD PELVIS IV CONTRAST ONLY 2016-09-23 18:04 FINDINGS: Artifacts: Limited due to bowel gas shadowing. Limited due to shadowing from the ribs. Liver: The liver measures 14 cm. Limited evaluation due to shadowing. Gallbladder: Cholecystectomy. Common bile duct: Normal common bile duct measuring 5 mm. Pancreas: The pancreas is not well-seen. Kidneys: The right kidney measures 9.9 x 4.3 x 5.0 cm. The left kidney measures 10.4 x 5.0 x 5.5 cm. No stones. No hydronephrosis. Spleen: The spleen measures 9.0 cm. Aorta: The visualized portions of the aorta appears unremarkable. Inferior vena cava: IVC seen. IMPRESSION: No acute findings.
[2017-08-19 05:23] VITALS: BP 110/52; PULSE 68; RESP 14
--- NOTE | 2017-08-19 05:46 | ED PDOC ---
HPI: Abdomen Time Seen by Provider: 08/18/17 23:07 Chief Complaint (Nursing): Abdominal Pain Chief Complaint (Provider): abdominal pain History Per: Patient History/Exam Limitations: no limitations Onset/Duration Of Symptoms: Days (1x) Outside of [place] travel?: No Location Of Pain/Discomfort: Epigastric Associated Symptoms: Nausea, Other (5 loose stool). denies: Fever, Chills, Vomiting Additional Complaint(s): 41 y/o female with a past medical history of gastritis presents to the ED complaining of abdominal pain onset last night with associated symptom of nausea and five loose stool (non-bloody). Reports the pain radiates the upper right and left side and she has not taken any medication for it. 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 Denies any recent travel. Also denies vomiting, fever or chills. PMD: Dr. Toussaint Past Medical History Reviewed: Historical Data, Nursing Documentation, Vital Signs Vital Signs: Last Vital Signs Temp 98.6 F 08/18/17 22:42 Pulse 68 08/19/17 05:23 Resp 14 08/19/17 05:23 BP 110/52 L 08/19/17 05:23 Pulse Ox 100 08/19/17 05:23 - Medical History PMH: Arthritis (per old chart but pt denies), Gastritis, Kidney Stones, Pneumonia - Surgical History Surgical History: Cholecystectomy, (x4) Other surgeries: kidney stone - Family History Family History: States: Unknown Family Hx - Immunization History Hx Tetanus Toxoid Vaccination: No Hx Influenza Vaccination: Yes Hx Pneumococcal Vaccination: No - Home Medications Home Medications: Ambulatory Orders Medication Instructions Recorded Naproxen [Naprosyn] 500 mg PO BID PRN #15 tablet 01/30/16 Famotidine [Pepcid] 20 mg PO DAILY PRN #10 tab 05/30/16 Ibuprofen [Motrin Tab] 600 mg PO Q6 PRN #30 tab 05/30/16 Nitrofurantoin Macrocrystals 100 mg PO BID #10 cap 07/03/16 [Macrobid] Ciprofloxacin [Cipro] 500 mg PO BID #14 tab 09/02/16 Ibuprofen [Motrin] 600 mg PO TID PRN #30 tab 09/02/16 Phenazopyridine [Phenazopyridine 200 mg PO TID #6 tab 09/02/16 HCl] oxyCODONE/Acetaminophen [Percocet 1 tab PO Q6 PRN #12 tab 09/23/16 5/325 mg Tab] Ciprofloxacin [Cipro] 500 mg PO BID #10 tab 11/09/16 Famotidine [Pepcid] 20 mg PO BID #28 tab 11/09/16 Dicyclomine [Bentyl] 10 mg PO QID #20 cap 02/26/17 Docusate [Colace] 100 mg PO BID #20 cap 02/26/17 Polyethylene Glycol 3350 [Miralax] 17 gm PO DAILY #12 powd.pack 02/26/17 Nitrofurantoin Macrocrystals 100 mg PO BID #14 cap 08/07/17 [Macrobid] - Allergies Allergies/Adverse Reactions: Allergies Allergy/AdvReac Type Severity Reaction Status Date / Time Penicillins Allergy Intermediate RASH Unverified 08/18/17 23:35 Review of Systems ROS Statement: Except As Marked, All Systems Reviewed And Found Negative Constitutional: Negative for: Fever, Chills Gastrointestinal: Positive for: Abdominal Pain. Negative for: Vomiting Genitourinary Female: Positive for: Other (five loose stool (non-bloody)) Physical Exam - Reviewed Nursing Documentation Reviewed: Yes Vital Signs Reviewed: Yes - Physical Exam Appears: Positive for: Well, Non-toxic, No Acute Distress Head Exam: Positive for: ATRAUMATIC, NORMAL INSPECTION, NORMOCEPHALIC Skin: Positive for: Normal Color, Warm, Dry Eye Exam: Positive for: EOMI, Normal appearance, PERRL ENT: Positive for: Normal ENT Inspection Neck: Positive for: Normal, Painless ROM, Supple. Negative for: Decreased ROM, Limited ROM Cardiovascular/Chest: Positive for: Regular Rate, Rhythm. Negative for: Murmur Respiratory: Positive for: Normal Breath Sounds. Negative for: Decreased Breath Sounds, Accessory Muscle Use, Wheezing Gastrointestinal/Abdominal: Positive for: Tenderness (left and right epigastric) . Negative for: Guarding, Rebound Back: Positive for: Normal Inspection. Negative for: L CVA Tenderness, R CVA Tenderness Extremity: Positive for: Normal ROM. Negative for: Tenderness, Pedal Edema, Deformity Neurologic/Psych: Positive for: Alert, Oriented (x3), Gait - Laboratory Results Result Diagrams: 08/18/17 23:59 08/18/17 23:59 - ECG O2 Sat by Pulse Oximetry: 100 (RA) Pulse Ox Interpretation: Normal Medical Decision Making Medical Decision Making: Time: 23:33 Initial Impression: Abdominal Pain Initial Plan: --Beta-HCG, Quantitative --CMP --Lipase Stat --CBC --Bentyl 20mg --Famotidine 40mg --Toradol 30mg --Zofran 4mg --Urinalysis --Abdomen Complete [US] --Reevaluation Time: 02:40 Labs and urine reports present normal. Time: 03:40 EXAM: US Abdomen Complete CLINICAL HISTORY: 41 years old, female; Pain; Abdominal pain; Epigastric; Prior surgery; Surgery date: 6+ months; Surgery type: See us ws; Additional info: Luq, ruq pain TECHNIQUE: Real-time ultrasound of the abdomen (complete) with image documentation. COMPARISON: CT - ABD PELVIS IV CONTRAST ONLY 2016-09-23 18:04 FINDINGS: Artifacts: Limited due to bowel gas shadowing. Limited due to shadowing from the ribs. Liver: The liver measures 14 cm. Limited evaluation due to shadowing. Gallbladder: Cholecystectomy. Common bile duct: Normal common bile duct measuring 5 mm. Pancreas: The pancreas is not well-seen. Kidneys: The right kidney measures 9.9 x 4.3 x 5.0 cm. The left kidney measures 10.4 x 5.0 x 5.5 cm. No stones. No hydronephrosis. Spleen: The spleen measures 9.0 cm. Aorta: The visualized portions of the aorta appears unremarkable. Inferior vena cava: IVC seen. IMPRESSION: No acute findings. Clinical Impression: Upper Abdominal pain, Nausea alone Upon provider evaluation patient is medically stable, and requires no further treatment in the ED at this time. Patient will be discharged. Counseling was provided and all questions were answered regarding diagnosis and need for follow up with PMD. There is agreement to discharge plan. Return if symptoms persist or worsen. Documented by Jen Nielsen acting as a scribe for [place] PA-C. All medical record entries made by the Scribe were at my direction and personally dictated by me. I have reviewed the chart and agree that the record accurately reflects my personal performance of the history, physical exam, medical decision making, and the department course for this patient. I have also personally directed, reviewed, and agree with the discharge instructions and disposition. Disposition - Clinical Impression Clinical Impression: Upper abdominal pain, Nausea alone, Abdominal discomfort - Patient ED Disposition Is Patient to be Admitted: No - Disposition Referrals: Rusty Cunningham MD [Staff Provider] - Disposition: Routine/Home Disposition Time: 05:20 Condition: STABLE Instructions: Acute Abdomen (Belly Pain), Nausea and Vomiting, Adult, Stomach Ache and Stomach Upset Forms: [facility] (Salvadorean) Print Language: SWEDISH
--- NOTE | 2017-08-19 06:42 | ED PDOC ---
HPI: Abdomen Time Seen by Provider: 08/18/17 23:07 Chief Complaint (Nursing): Abdominal Pain Chief Complaint (Provider): abdominal pain History Per: Patient History/Exam Limitations: no limitations Onset/Duration Of Symptoms: Hrs (since last night) Outside of [place] travel?: No Current Symptoms Are (Timing): Still Present Severity: Mild Pain Scale Rating Of: 5 Location Of Pain/Discomfort: Epigastric Quality Of Discomfort: "Pain" Associated Symptoms: Nausea, Other (five episodes of nonbloody loose stool). denies: Fever, Chills, Vomiting Last Bowel Movement: Today Additional Complaint(s): 41 y/o female with a past medical history of gastritis presents to the ED complaining of epigastric abdominal pain, onset last night with associated symptom of nausea and five episodes of loose stool (non-bloody). Reports the pain radiates the upper right and left sides of her abdomen and she has not taken any medication for it prior to arrival in the ED. Her last menstrual period was 08/13/17 and her psychological operations officer is Dr. Cunningham. Denies any recent travel. Also denies vomiting, rash, joint pain, fever, headache, vaginal bleeding, vaginal discharge, flank pain, urinary symptoms, or chills. PMD: Dr. Tosusaint Past Medical History Reviewed: Historical Data, Nursing Documentation, Vital Signs Vital Signs: Last Vital Signs Temp 98.6 F 08/18/17 22:42 Pulse 68 08/19/17 05:23 Resp 14 08/19/17 05:23 BP 110/52 L 08/19/17 05:23 Pulse Ox 100 08/19/17 21:22 - Medical History PMH: Arthritis (per old chart), Gastritis, Kidney Stones, Pneumonia - Surgical History Surgical History: Cholecystectomy, (x4) Other surgeries: kidney stone removal - Family History Family History: States: Unknown Family Hx - Social History Current smoker - smoking cessation education provided: No Alcohol: None Drugs: Denies - Immunization History Hx Tetanus Toxoid Vaccination: No Hx Influenza Vaccination: Yes Hx Pneumococcal Vaccination: No - Home Medications Home Medications: Ambulatory Orders Medication Instructions Recorded Naproxen [Naprosyn] 500 mg PO BID PRN #15 tablet 01/30/16 Famotidine [Pepcid] 20 mg PO DAILY PRN #10 tab 05/30/16 Ibuprofen [Motrin Tab] 600 mg PO Q6 PRN #30 tab 05/30/16 Nitrofurantoin Macrocrystals 100 mg PO BID #10 cap 07/03/16 [Macrobid] Ciprofloxacin [Cipro] 500 mg PO BID #14 tab 09/02/16 Ibuprofen [Motrin] 600 mg PO TID PRN #30 tab 09/02/16 Phenazopyridine [Phenazopyridine 200 mg PO TID #6 tab 09/02/16 HCl] oxyCODONE/Acetaminophen [Percocet 1 tab PO Q6 PRN #12 tab 09/23/16 5/325 mg Tab] Ciprofloxacin [Cipro] 500 mg PO BID #10 tab 11/09/16 Famotidine [Pepcid] 20 mg PO BID #28 tab 11/09/16 Dicyclomine [Bentyl] 10 mg PO QID #20 cap 02/26/17 Docusate [Colace] 100 mg PO BID #20 cap 02/26/17 Polyethylene Glycol 3350 [Miralax] 17 gm PO DAILY #12 powd.pack 02/26/17 Nitrofurantoin Macrocrystals 100 mg PO BID #14 cap 08/07/17 [Macrobid] - Allergies Allergies/Adverse Reactions: Allergies Allergy/AdvReac Type Severity Reaction Status Date / Time Penicillins Allergy Intermediate RASH Unverified 08/18/17 23:35 Review of Systems ROS Statement: Except As Marked, All Systems Reviewed And Found Negative Constitutional: Negative for: Fever, Chills Respiratory: Negative for: Cough, Shortness of Breath Gastrointestinal: Positive for: Abdominal Pain. Negative for: Vomiting Genitourinary Female: Positive for: Other (five loose stool (non-bloody)) Physical Exam - Reviewed Nursing Documentation Reviewed: Yes Vital Signs Reviewed: Yes - Physical Exam Appears: Positive for: Well, Non-toxic, No Acute Distress Head Exam: Positive for: ATRAUMATIC, NORMOCEPHALIC Skin: Positive for: Normal Color, Warm, Dry Eye Exam: Positive for: EOMI, PERRL ENT: Positive for: Other (mucus membranes moist) Neck: Positive for: Painless ROM, Supple. Negative for: Decreased ROM, Limited ROM Cardiovascular/Chest: Positive for: Regular Rate, Rhythm. Negative for: Murmur Respiratory: Positive for: Normal Breath Sounds. Negative for: Decreased Breath Sounds, Accessory Muscle Use, Wheezing Gastrointestinal/Abdominal: Positive for: Bowel Sounds (active x4), Tenderness ( mild to epigastric and RUQ). Negative for: Organomegaly, Mass, Distended, Guarding, Rebound Back: Positive for: Normal Inspection. Negative for: L CVA Tenderness, R CVA Tenderness Extremity: Positive for: Normal ROM. Negative for: Tenderness, Pedal Edema, Deformity Neurologic/Psych: Positive for: Alert, Oriented (x3), Mood/Affect (appropriate) , Gait (steady) - Laboratory Results Result Diagrams: 08/18/17 23:59 08/18/17 23:59 - ECG O2 Sat by Pulse Oximetry: 100 (RA) Pulse Ox Interpretation: Normal Medical Decision Making Medical Decision Making: Time: 23:33 Initial Impression: Abdominal Pain Initial Plan: --CMP --Lipase --CBC --Bentyl 20mg --Famotidine 40mg --Toradol 30mg --Zofran 4mg --Urinalysis --Abdomen Complete [US] --Reevaluation Time: 02:40 Labs and urine grossly normal. Patient pending U/S evaluation. Resting comfortably in ED stretcher with no additional complaints. Abdomen remains soft , nondistended. Patient reports mild improvement of presenting symptoms. Time: 04:10 PO challenge ordered. EXAM: US Abdomen Complete CLINICAL HISTORY: 41 years old, female; Pain; Abdominal pain; Epigastric; Prior surgery; Surgery date: 6+ months; Surgery type: See us ws; Additional info: Luq, ruq pain TECHNIQUE: Real-time ultrasound of the abdomen (complete) with image documentation. COMPARISON: CT - ABD PELVIS IV CONTRAST ONLY 2016-09-23 18:04 FINDINGS: Artifacts: Limited due to bowel gas shadowing. Limited due to shadowing from the ribs. Liver: The liver measures 14 cm. Limited evaluation due to shadowing. Gallbladder: Cholecystectomy. Common bile duct: Normal common bile duct measuring 5 mm. Pancreas: The pancreas is not well-seen. Kidneys: The right kidney measures 9.9 x 4.3 x 5.0 cm. The left kidney measures 10.4 x 5.0 x 5.5 cm. No stones. No hydronephrosis. Spleen: The spleen measures 9.0 cm. Aorta: The visualized portions of the aorta appears unremarkable. Inferior vena cava: IVC seen. IMPRESSION: No acute findings. 0430 On re-evaluation, patient reports improvement of symptoms, denies any abdominal pain or nausea at present. On exam, patient remains AAOx3, in no acute distress. Lungs clear to auscultation, cardiac RRR, abdomen soft, non-tender, non-distended; repeat neuro exam shows no focal findings. Patient tolerating PO intake in ED without difficulty. Upon provider evaluation patient is medically stable, and requires no further treatment in the ED at this time. Diagnostics discussed with patient with demonstrated understanding. Patient will be discharged. Counseling was provided and all questions were answered regarding diagnosis and need for follow up with PMD/GI. There is agreement to discharge plan. Return if symptoms persist or worsen. Documented by Jen Nielsen acting as a scribe for [place] PA-C. All medical record entries made by the Scribe were at my direction and personally dictated by me. I have reviewed the chart and agree that the record accurately reflects my personal performance of the history, physical exam, medical decision making, and the department course for this patient. I have also personally directed, reviewed, and agree with the discharge instructions and disposition. Disposition - Clinical Impression Clinical Impression: Upper abdominal pain, Nausea alone, Abdominal discomfort - Patient ED Disposition Is Patient to be Admitted: No - Disposition Referrals: Rusty Cunningham MD [Staff Provider] - Disposition: Routine/Home Disposition Time: 05:20 Condition: STABLE Instructions: Acute Abdomen (Belly Pain), Nausea and Vomiting, Adult, Stomach Ache and Stomach Upset Forms: [employer] (Mongolian) Print Language: LUXEMBOURGER Results - Lab Results Lab Results: 08/19/17 08/18/17 08/18/17 00:01 23:59 23:59 WBC 4.7 L RBC 4.70 Hgb 11.5 L Hct 35.7 MCV 75.9 L MCH 24.5 L MCHC 32.3 L RDW 15.8 H Plt Count 344 MPV 7.8 Neut % (Auto) 67.5 Lymph % (Auto) 20.3 [place] % (Auto) 9.6 Eos % (Auto) 2.0 Baso % (Auto) 0.6 Neut # (Auto) 3.2 Lymph # (Auto) 0.9 L [place] # (Auto) 0.4 Eos # (Auto) 0.1 Baso # (Auto) 0.0 Sodium 140 Potassium 3.7 Chloride 100 Carbon Dioxide 29 Anion Gap 15 BUN 14 Creatinine 0.6 L Est GFR ( Amer) > 60 Est GFR (Non-Af Amer) > 60 Random Glucose 97 Calcium 8.6 Total Bilirubin 0.2 AST 30 ALT 35 Alkaline Phosphatase 86 Total Protein 6.8 Albumin 3.7 Globulin 3.1 Albumin/Globulin Ratio 1.2 Lipase 75 Urine Color Yellow Urine Clarity Slighty-cloudy Urine pH 6.0 Ur Specific [place] 1.020 Urine Protein Negative Urine Glucose (UA) Neg Urine Ketones Negative Urine Blood Negative Urine Nitrate Negative Urine Bilirubin Negative Urine Urobilinogen 0.2-1.0 Ur Leukocyte Esterase Neg Urine RBC (Auto) 1 Urine Microscopic WBC < 1 Ur Squamous Epith Cells 3
== END 2017-08-19 05:31 | disposition home or self-care (01) ==
LOC: H.ER 22:39
DX: R10.13 Epigastric pain (principal); Z88.0 Allergy status to penicillin
CPT/HCPCS: 76700; 80053; 81003; 81025; 83690; 85025; 96374; 96375; 99282; J1885; J2405

== ENCOUNTER 2017-09-12 08:14 | Day surgery (SDC) | payer OTHER ==
[2017-09-12] MEDS ORDERED: Lactated Ringer's 500 ML IV ONE (08:34)
[2017-09-12] MEDS ORDERED: Propofol 10 mg/ml Inj (20 ML) ONE (10:05)
[2017-09-12] MEDS ORDERED: Midazolam 2 MG/2 ML VIAL ONE (10:05)
[2017-09-12 10:30] VITALS: TEMP 97
[2017-09-12 10:52] VITALS: BP 104/55; PULSE 69; RESP 16; O2SAT 100
== END 2017-09-12 10:59 | disposition home or self-care (01) ==
LOC: H.ENDO 08:14
PROVIDERS: ATTEND Internal Medicine Gastroenterology
DX: R10.13 Epigastric pain (principal); K21.9 Gastro-esophageal reflux disease without esophagitis; K31.9 Disease of stomach and duodenum, unspecified; K29.80 Duodenitis without bleeding; K29.50 Unspecified chronic gastritis without bleeding
CPT/HCPCS: 43239; 88305; J2250; J2704; J7120

== ENCOUNTER 2017-12-20 18:52 | Emergency (ER) | payer OTHER ==
[2017-12-20 18:53] VITALS: BMI 28.9
[2017-12-20 19:21] VITALS: TEMP 98.6; O2SAT 100
[2017-12-20] MEDS ORDERED: Alum-Mag Hydrox-Simethicone Susp (30 mL) PO ONE (20:02)
[2017-12-20] MEDS ORDERED: Alum-Mag Hydrox-Simethicone Susp (30 mL) ONE (20:26)
[2017-12-20 20:27] LABS: MEAN CELL VOLUME 74.6 fl (81.0-99.0); MEAN CORPUSCULAR HEMOGLOBIN 24.1 pg (27.0-31.0); MEAN CORPUSCULAR HGB CONC 32.4 g/dL (33.0-37.0); RBC 4.54 Mil/uL (3.80-5.20); RED CELL DISTRIBUTION WIDTH 16.7 % (11.5-14.5); WHITE BLOOD COUNT 8.7 K/uL (4.8-10.8)
[2017-12-20 20:36] LABS: BLOOD UREA NITROGEN 16 mg/dl (7-17); CALCIUM 8.9 mg/dL (8.4-10.2); GFR AFRICAN-AMERICAN > 60; GFR NON-AFRICAN AMERICAN > 60
[2017-12-20 21:19] LABS: SQUAMOUS EPITHIAL < 1 /hpf (0-5); URINE BILIRUBIN NEGATIVE (NEGATIVE); URINE BLOOD NEGATIVE (NEGATIVE); URINE CLARITY CLEAR (Clear); URINE COLOR YELLOW (YELLOW); URINE GLUCOSE (UA) NEG (Normal); URINE LEUKOCYTE ESTERASE NEG Leu/uL (Negative); URINE PROTEIN NEGATIVE (NEGATIVE); URINE UROBILINOGEN 0.2-1.0 mg/dL (0.2-1.0)
--- NOTE | 2017-12-20 21:27 | ED PDOC ---
HPI: General Adult Time Seen by Provider: 12/20/17 19:38 Chief Complaint (Nursing): Dizziness/Lightheaded Chief Complaint (Provider): Dizziness/Lightheaded History Per: Patient History/Exam Limitations: no limitations Onset/Duration Of Symptoms: Days (x 3 ) Current Symptoms Are (Timing): Still Present Additional Complaint(s): 42 year old female with a history of kidney stones and gastritis presents to the ED with complaints of intermittent dizziness, pain in her legs described as "bone pain", and an acidic feeling in her esophagus and epigastric area for the last three days. Patient reports dizziness makes her feel like the room is spinning and she feels like she does not have strength in her legs. She denies nausea, vomiting, headache and lateralizing symptoms. PMD: Dr. Arnel Arciniega Past Medical History Reviewed: Historical Data, Nursing Documentation, Vital Signs Vital Signs: Last Vital Signs Temp 98.6 F 12/20/17 19:18 Pulse 70 12/20/17 22:58 Resp 18 12/20/17 22:58 BP 120/69 12/20/17 22:58 Pulse Ox 100 12/20/17 22:58 - Medical History PMH: Arthritis (per old chart), Gastritis, Gall Bladder Disease, Kidney Stones, Pneumonia - Surgical History Surgical History: Cholecystectomy, (x4) - Family History Family History: States: Unknown Family Hx - Immunization History Hx Tetanus Toxoid Vaccination: No Hx Influenza Vaccination: Yes Hx Pneumococcal Vaccination: No - Home Medications Home Medications: Ambulatory Orders Medication Instructions Recorded Ibuprofen/Famotidine [Duexis 1 each PO Q8 #20 tablet 12/20/17 800-26.6 mg Tablet] Iron,Carb/Vit C/Vit B12/Folic 1 each PO DAILY #30 tablet 12/20/17 [Iron 100 Plus Tablet] - Allergies Allergies/Adverse Reactions: Allergies Allergy/AdvReac Type Severity Reaction Status Date / Time Penicillins Allergy Intermediate RASH Verified 12/20/17 19:18 Review of Systems ROS Statement: Except As Marked, All Systems Reviewed And Found Negative Musculoskeletal: Positive for: Leg Pain Neurological: Positive for: Dizziness Physical Exam - Reviewed Nursing Documentation Reviewed: Yes Vital Signs Reviewed: Yes - Physical Exam Appears: Positive for: Non-toxic, No Acute Distress Head Exam: Positive for: ATRAUMATIC, NORMAL INSPECTION, NORMOCEPHALIC Skin: Positive for: Normal Color, Warm, Dry Eye Exam: Positive for: EOMI, Normal appearance, PERRL Neck: Positive for: Normal, Painless ROM, Supple Cardiovascular/Chest: Positive for: Regular Rate, Rhythm. Negative for: Murmur Respiratory: Positive for: Normal Breath Sounds. Negative for: Respiratory Distress Gastrointestinal/Abdominal: Positive for: Normal Exam, Soft. Negative for: Tenderness Extremity: Positive for: Normal ROM. Negative for: Deformity Neurologic/Psych: Positive for: Alert, microsoft crm developer II-XII (intact), Oriented, Cerebellar Tests (normal), Gait (steady). Negative for: Motor/Sensory Deficits , Aphasia - Laboratory Results Result Diagrams: 12/20/17 20:21 12/20/17 20:21 - ECG O2 Sat by Pulse Oximetry: 100 (RA) Pulse Ox Interpretation: Normal Medical Decision Making Medical Decision Making: Time: 20:02 A&P: 42 year old female with history of kidney stones presenting with dizziness and vague neurological symptoms. --Patient has non focal and completely normal neurological exam. --Not concerned for acute intracranial pathology. --Most likely peripheral neuropathy related. --Possibly early arthritic pains in legs. --Head Ct --BMP --Urine preg --urine dip --CBC --Maalox 30 ml PO --Tylenol 650 mg PO --UA Ct FINDINGS: Brain: Unremarkable. No hemorrhage. No significant white matter disease. No edema. Ventricles: Unremarkable. No ventriculomegaly. Bones/joints: Unremarkable. No acute fracture. Soft tissues: Unremarkable. Sinuses: Unremarkable as visualized. No acute sinusitis. Mastoid air cells: Unremarkable as visualized. No mastoid effusion. IMPRESSION: No evidence of acute intracranial hemorrhage.CT can miss an acute nonhemorrhagic CVA. It should be noted that acute strokes may be initially radiologically occult on CT. If the patient is having persistent stroke like symptomatology, then MRI may be beneficial. 2300 Patient feeling better, advised to folllowup with neurology and orthopedics as needed. Well appearing, ambulatory without any difficulty. ---- Scribe Attestation: Documented by Winter William, acting as a scribe for Garrett Potter MD Provider Scribe Attestation: All medical record entries made by the Scribe were at my direction and personally dictated by me. I have reviewed the chart and agree that the record accurately reflects my personal performance of the history, physical exam, medical decision making, and the department course for this patient. I have also personally directed, reviewed, and agree with the discharge instructions and disposition. Disposition - Clinical Impression Clinical Impression: Dizziness - Disposition Referrals: Cuong Cabello III, MD [Staff Provider] - Jones Brenner MD [Medical Doctor] - Disposition: Routine/Home Disposition Time: 23:00 Condition: STABLE Prescriptions: Ibuprofen/Famotidine [Duexis 800-26.6 mg Tablet] 1 each PO Q8 #20 tablet Iron,Carb/Vit C/Vit B12/Folic [Iron 100 Plus Tablet] 1 each PO DAILY #30 tablet Instructions: Muscle and Bone Pain (DC), Dizziness, Nonvertigo, (DC) Forms: [employer] (Thai), [facility] ED School/Work Excuse Print Language: CHINESE
[2017-12-20 22:59] VITALS: BP 120/69; PULSE 70; RESP 18
--- NOTE | 2017-12-21 10:28 | CT ---
Date of service: 12/20/2017 PROCEDURE: CT HEAD WITHOUT CONTRAST. HISTORY: dizziness, weakness COMPARISON: None available. TECHNIQUE: Axial computed tomography images were obtained through the head/brain without intravenous contrast. Radiation dose: Total exam DLP = 663.2 mGy-cm. This CT exam was performed using one or more of the following dose reduction techniques: Automated exposure control, adjustment of the mA and/or kV according to patient size, and/or use of iterative reconstruction technique. FINDINGS: HEMORRHAGE: No intracranial hemorrhage. BRAIN: No mass effect or edema. No atrophy or chronic microvascular ischemic changes. VENTRICLES: Unremarkable. No hydrocephalus. CALVARIUM: Unremarkable. PARANASAL SINUSES: Unremarkable as visualized. No significant inflammatory changes. MASTOID AIR CELLS: Unremarkable as visualized. No inflammatory changes. OTHER FINDINGS: None. IMPRESSION: No evidence of acute intracranial hemorrhage intracranial collection mass effect or midline shift. Baseline study. If clinically warranted follow-up exam or further assessment by MRI may be obtained. Preliminary report was submitted by virtual Radiology.
== END 2017-12-20 23:10 | disposition home or self-care (01) ==
LOC: H.ER 18:52
DX: R42 Dizziness and giddiness (principal); Z87.442 Personal history of urinary calculi; Z88.0 Allergy status to penicillin

== ENCOUNTER 2018-03-07 15:20 | Emergency (ER) | payer SELFPAY ==
[2018-03-07 15:20] VITALS: BMI 28.9
[2018-03-07 15:31] VITALS: TEMP 98.6; O2SAT 100
[2018-03-07] MEDS ORDERED: Sodium Chloride 0.9% 1,000 ML IV STA (15:46)
--- NOTE | 2018-03-07 16:05 | ED PDOC ---
HPI: Neurologic - General Time Seen by Provider: 03/07/18 15:36 Chief Complaint (Nursing): Dizziness/Lightheaded Chief Complaint (Provider): Dizziness/Lightheaded Source: patient, family Exam Limitations: no limitations - History of Present Illness Allergies/Adverse Reactions: Allergies Penicillins Allergy (Intermediate, Verified 03/07/18 15:27) RASH Home Medications: Ambulatory Orders Ibuprofen/Famotidine [Duexis 800-26.6 mg Tablet] 1 each PO Q8 #20 tablet 12/20/17 Iron,Carb/Vit C/Vit B12/Folic [Iron 100 Plus Tablet] 1 each PO DAILY #30 tablet 12/20/17 Meclizine [Antivert] 25 mg PO DAILY PRN 5 Days tab 03/07/18 Additional Complaint(s): 42 y/o female with presents to the ED for evaluation of dizziness, onset earlier today. Patient reports dizziness began after having under went a blood test prior to arrival. Patient additionally reports she is currently being worked up by a neurologist for nerve pain to the left side of the neck and left arm. Patient was sent for blood work by the neurologist for further evaluation of nerve pain. Patient states dizziness is associated with blurry vision at onset, generalized weakness, palpitations, nausea and feeling like she is going to pass out. Denies headache, vomiting, pain and blurry vision at this time. No chest pain, long distance travel, hormone tx. PMD: Arnel Arciniega Neurologist: Dr. Zack Woodruff Past Medical History Reviewed: Historical Data, Nursing Documentation, Vital Signs Vital Signs: Last Vital Signs Temp 98.6 F 03/07/18 15:28 Pulse 105 H 03/07/18 15:28 Resp 18 03/07/18 15:28 BP 128/80 03/07/18 15:28 Pulse Ox 100 03/07/18 15:28 - Medical History PMH: Arthritis (per old chart), Gastritis, Gall Bladder Disease, Kidney Stones, Pneumonia Other PMH: neck pain going to the left arm - Surgical History Surgical History: Cholecystectomy, (x4) - Family History Family History: States: Unknown Family Hx - Living Arrangements Living Arrangements: With Family - Social History Alcohol: None Drugs: Denies - Immunization History Hx Tetanus Toxoid Vaccination: No Hx Influenza Vaccination: Yes Hx Pneumococcal Vaccination: No - Home Medications Home Medications: Ambulatory Orders Medication Instructions Recorded Ibuprofen/Famotidine [Duexis 1 each PO Q8 #20 tablet 12/20/17 800-26.6 mg Tablet] Iron,Carb/Vit C/Vit B12/Folic 1 each PO DAILY #30 tablet 12/20/17 [Iron 100 Plus Tablet] Meclizine [Antivert] 25 mg PO DAILY PRN 5 Days tab 03/07/18 - Allergies Allergies/Adverse Reactions: Allergies Allergy/AdvReac Type Severity Reaction Status Date / Time Penicillins Allergy Intermediate RASH Verified 03/07/18 15:27 Review of Systems ROS Statement: Except As Marked, All Systems Reviewed And Found Negative Eyes: Positive for: Vision Change Cardiovascular: Positive for: Palpitations Gastrointestinal: Positive for: Nausea. Negative for: Vomiting Neurological: Positive for: Weakness, Dizziness Physical Exam - Reviewed Nursing Documentation Reviewed: Yes Vital Signs Reviewed: Yes - Physical Exam Appears: Positive for: No Acute Distress Head Exam: Positive for: ATRAUMATIC, NORMOCEPHALIC Skin: Positive for: Normal Color, Warm, Dry Eye Exam: Positive for: Normal appearance, EOMI, PERRL ENT: Positive for: Normal ENT Inspection Neck: Positive for: Normal, Painless ROM Cardiovascular/Chest: Positive for: Regular Rate, Rhythm. Negative for: Murmur Respiratory: Positive for: Normal Breath Sounds. Negative for: Respiratory Distress Gastrointestinal/Abdominal: Positive for: Normal Exam, Soft. Negative for: Tenderness Back: Positive for: Normal Inspection. Negative for: L CVA Tenderness, R CVA Tenderness Extremity: Positive for: Normal ROM. Negative for: Tenderness, Pedal Edema, Calf Tenderness, Deformity Neurologic/Psych: Positive for: Alert, bulk pallet builder II-XII (intact), Oriented. Negative for: Motor/Sensory Deficits, Facial Droop - Laboratory Results Result Diagrams: 03/07/18 16:05 03/07/18 16:05 Interpretation Of Abn Labs: no acute - ECG ECG: Positive for: Interpreted By Me, Viewed By Me ECG Rhythm: Positive for: Normal QRS, Normal ST Segment, Sinus Rhythm Interpretation Of Abn EKG: same as old O2 Sat by Pulse Oximetry: 100 (RA) Pulse Ox Interpretation: Normal - CT Scan/US head Other Rad Studies (CT/US): Read By Radiologist Other Rad Interpretation: no acute - Progress ED Course And Treament: 1811: Stable. AAOx3. Pain free. Tolerated PO. Ambulated with no issues. Seen here in December for same and dc. Pt. states seen at [facility] for similar as well and had neg ct head and dc. Medical Decision Making Medical Decision Making: Time: 1546 Plan: -- CT Head w/o Contrast -- EKG -- BMP -- Troponin I -- ED Urine -- ED Urine Dip -- CBC with differentials -- Meclizine 25 mg PO -- Sodium Chloride IV 1000 mls/hr Time: [address] RESULTS FINDINGS: HEMORRHAGE: No intracranial hemorrhage. BRAIN: No mass effect or edema. No atrophy or chronic microvascular ischemic changes. VENTRICLES: Unremarkable. No hydrocephalus. CALVARIUM: Unremarkable. PARANASAL SINUSES: Left sphenoid sinus secretions. MASTOID AIR CELLS: Unremarkable as visualized. No inflammatory changes. OTHER FINDINGS: None. IMPRESSION: No acute intracranial pathology. Left sphenoid sinus disease. Scribe Attestation: Documented by Noa Lorenzo, acting as a scribe for Mak Hogue MD. Provider Scribe Attestation: All medical record entries made by the Scribe were at my direction and personally dictated by me. I have reviewed the chart and agree that the record accurately reflects my personal performance of the history, physical exam, medical decision making, and the department course for this patient. I have also personally directed, reviewed, and agree with the discharge instructions and disposition. Disposition - Clinical Impression Clinical Impression: Dizziness, Weakness - Patient ED Disposition Is Patient to be Admitted: No Counseled Patient/Family Regarding: Studies Performed, Diagnosis, Need For Followup, Rx Given - Disposition Referrals: [facility] [Outside] - 03/08/18 Disposition: Routine/Home Disposition Time: 18:21 Condition: STABLE Additional Instructions: Return if not better in 3 days. Prescriptions: Meclizine [Antivert] 25 mg PO DAILY PRN 5 Days tab PRN Reason: Dizziness Instructions: Weakness (ED), Vertigo (a Type of Dizziness) Print Language: ROMANIAN
[2018-03-07 16:14] LABS: BASO # 0.1 K/uL (0.0-0.2); BASO % 1.2 % (0.0-2.0); EOS # 0.1 K/uL (0.0-0.7); EOS % 1.3 % (0.0-4.0); HEMOGLOBIN 12.7 g/dL (12.0-16.0); LYMPH # 1.2 K/uL (1.0-4.3); LYMPH % 12.6 % (20.0-40.0); MEAN CELL VOLUME 79.5 fl (81.0-99.0); MEAN CORPUSCULAR HEMOGLOBIN 26.5 pg (27.0-31.0); MEAN CORPUSCULAR HGB CONC 33.4 g/dL (33.0-37.0); MEAN PLATELET VOLUME 7.7 fl (7.2-11.7); MONO # 0.5 K/uL (0.0-0.8); MONO % 5.5 % (0.0-10.0); NEUT # 7.3 K/uL (1.8-7.0); NEUT % 79.4 % (50.0-75.0); RBC 4.78 Mil/uL (3.80-5.20); WHITE BLOOD COUNT 9.2 K/uL (4.8-10.8)
[2018-03-07 16:37] LABS: BLOOD UREA NITROGEN 12 mg/dl (7-17); CALCIUM 9.7 mg/dL (8.4-10.2); GFR NON-AFRICAN AMERICAN > 60
--- NOTE | 2018-03-07 16:38 | CT ---
Date of service: 03/07/2018 PROCEDURE: CT HEAD WITHOUT CONTRAST. HISTORY: dizzy COMPARISON: CT head dated 12/20/2017 TECHNIQUE: Axial computed tomography images were obtained through the head/brain without intravenous contrast. Radiation dose: Total exam DLP = 696.8 mGy-cm. This CT exam was performed using one or more of the following dose reduction techniques: Automated exposure control, adjustment of the mA and/or kV according to patient size, and/or use of iterative reconstruction technique. FINDINGS: HEMORRHAGE: No intracranial hemorrhage. BRAIN: No mass effect or edema. No atrophy or chronic microvascular ischemic changes. VENTRICLES: Unremarkable. No hydrocephalus. CALVARIUM: Unremarkable. PARANASAL SINUSES: Left sphenoid sinus secretions. MASTOID AIR CELLS: Unremarkable as visualized. No inflammatory changes. OTHER FINDINGS: None. IMPRESSION: No acute intracranial pathology. Left sphenoid sinus disease.
[2018-03-07 18:33] VITALS: BP 132/74; PULSE 82; RESP 16
--- NOTE | 2018-03-08 07:56 | CARD ---
APPROVED REPORT Date of service: 03/07/2018 EKG Measurement Heart [id number] <Conclusion> Normal sinus rhythm Normal ECG
== END 2018-03-07 18:34 | disposition home or self-care (01) ==
LOC: H.ER 15:20
DX: R42 Dizziness and giddiness (principal); M62.81 Muscle weakness (generalized)
CPT/HCPCS: 70450; 80048; 81025; 84484; 85025; 93005; 96360; 99285; J7030

== ENCOUNTER 2018-05-18 20:20 | Emergency (ER) | payer SELFPAY ==
[2018-05-18 20:21] VITALS: BMI 28.9
[2018-05-18 20:54] VITALS: BP 118/77; PULSE 88; RESP 16; TEMP 98.2; O2SAT 100
--- NOTE | 2018-05-18 21:08 | ED PDOC ---
HPI: General Adult Time Seen by Provider: 05/18/18 21:04 Chief Complaint (Nursing): Back Pain Chief Complaint (Provider): back pain, cough, chills History Per: Patient Onset/Duration Of Symptoms: Days (x 3) Current Symptoms Are (Timing): Still Present Additional Complaint(s): 42 year old female presents to the ED with upper back pain, dry cough and chills for the last 3 days. Patient offers no other complaints at this time. Denies sputum and fever. PMD: Dr. Arnel Arciniega Past Medical History Reviewed: Historical Data Vital Signs: Last Vital Signs Temp 98.2 F 05/18/18 20:49 Pulse 88 05/18/18 20:49 Resp 16 05/18/18 20:49 BP 118/77 05/18/18 20:49 Pulse Ox 100 05/18/18 20:49 - Medical History PMH: Arthritis (per old chart), Gastritis, Kidney Stones - Surgical History Surgical History: Cholecystectomy, (x4) - Family History Family History: States: No Known Family Hx - Living Arrangements Living Arrangements: With Family - Social History Current smoker - smoking cessation education provided: No Alcohol: None Drugs: Denies - Home Medications Home Medications: Ambulatory Orders Medication Instructions Recorded Ibuprofen/Famotidine [Duexis 1 each PO Q8 #20 tablet 12/20/17 800-26.6 mg Tablet] Iron,Carb/Vit C/Vit B12/Folic 1 each PO DAILY #30 tablet 12/20/17 [Iron 100 Plus Tablet] Meclizine [Antivert] 25 mg PO DAILY PRN 5 Days tab 03/07/18 Azithromycin [Zithromax] 250 mg PO DAILY #6 tab 05/18/18 Benzonatate 200 mg PO TID PRN #20 capsule 05/18/18 Ibuprofen [Motrin Tab] 800 mg PO Q8 PRN #20 tab 05/18/18 - Allergies Allergies/Adverse Reactions: Allergies Allergy/AdvReac Type Severity Reaction Status Date / Time Penicillins Allergy Intermediate RASH Verified 05/18/18 20:49 Review of Systems ROS Statement: Except As Marked, All Systems Reviewed And Found Negative Constitutional: Positive for: Chills. Negative for: Fever Cardiovascular: Negative for: Chest Pain Respiratory: Positive for: Cough (dry). Negative for: Sputum Gastrointestinal: Negative for: Nausea, Vomiting Musculoskeletal: Positive for: Back Pain (upper back pain) Physical Exam - Reviewed Nursing Documentation Reviewed: Yes Vital Signs Reviewed: Yes - Physical Exam Appears: Positive for: Well, Non-toxic, No Acute Distress Skin: Positive for: Normal Color. Negative for: Rash Eye Exam: Positive for: Normal appearance Cardiovascular/Chest: Positive for: Regular Rate, Rhythm. Negative for: Murmur Respiratory: Positive for: Normal Breath Sounds. Negative for: Respiratory Distress Gastrointestinal/Abdominal: Positive for: Normal Exam, Soft. Negative for: Tenderness Extremity: Negative for: Pedal Edema Neurologic/Psych: Positive for: Alert, Oriented. Negative for: Motor/Sensory Deficits - Laboratory Results Urine POC: Negative - ECG O2 Sat by Pulse Oximetry: 100 (RA) Pulse Ox Interpretation: Normal - Other Rad CXR X-Ray: Interpreted by Me, Viewed By Me X-Ray Interpretation: no acute finding Medical Decision Making Medical Decision Makin:04 Impression: 42 y/o with cough and back pain Initial Plan: --urine test --Chest x-ray --motrin 600 mg PO Patient is aware of diagnostic testing results. All questions answered. Prescriptions given for Zithromax, Tessalon Perles and Motrin. Patient was advised to follow-up in 2-3 days with primary doctor. Scribe Attestation: Documented by Winter William, acting as a scribe for Sherri Clifton PA-C Provider Scribe Attestation: All medical record entries made by the Scribe were at my direction and personally dictated by me. I have reviewed the chart and agree that the record accurately reflects my personal performance of the history, physical exam, medical decision making, and the department course for this patient. I have also personally directed, reviewed, and agree with the discharge instructions and disposition. Disposition - Clinical Impression Clinical Impression: Bronchitis - Patient ED Disposition Is Patient to be Admitted: No Counseled Patient/Family Regarding: Studies Performed, Diagnosis, Need For Followup, Rx Given - Disposition Referrals: Arnel Arciniega MD [Staff Provider] - Disposition: Routine/Home Disposition Time: 22:02 Condition: STABLE Additional Instructions: Take prescription meds as directed. Follow-up with primary doctor in 2-3 days. Prescriptions: Azithromycin [Zithromax] 250 mg PO DAILY #6 tab Benzonatate 200 mg PO TID PRN #20 capsule PRN Reason: Cough Ibuprofen [Motrin Tab] 800 mg PO Q8 PRN #20 tab PRN Reason: Pain, Moderate (4-7) Instructions: Acute Bronchitis Forms: [employer] [place] [facility] (Iranian), [facility] ED School/Work Excuse
--- NOTE | 2018-05-19 10:20 | RAD ---
Date of service: 05/18/2018 HISTORY: cough COMPARISON: Chest radiographs 05/30/2016 TECHNIQUE: Chest PA and lateral FINDINGS: LUNGS: No active pulmonary disease. PLEURA: No significant pleural effusion identified. No pneumothorax apparent. CARDIOVASCULAR: No aortic atherosclerotic calcification present. Normal cardiac size. No pulmonary vascular congestion. OSSEOUS STRUCTURES: No significant abnormalities. VISUALIZED UPPER ABDOMEN: Surgical clips again noted right upper quadrant abdomen. OTHER FINDINGS: None. IMPRESSION: No interval acute cardiopulmonary disease appreciated.
== END 2018-05-18 22:25 | disposition home or self-care (01) ==
LOC: H.ER 20:20
DX: J40 Bronchitis, not specified as acute or chronic (principal); Z88.0 Allergy status to penicillin

== ENCOUNTER 2018-05-31 18:02 | Emergency (ER) | payer SELFPAY ==
[2018-05-31 18:02] VITALS: BMI 28.9
[2018-05-31 18:35] VITALS: BP 108/69; PULSE 84; RESP 16; TEMP 98.2; O2SAT 100
[2018-05-31] MEDS ORDERED: Promethazine/Cod 6.25mg-10mg/5ml Syr UD PO STA (19:27)
[2018-05-31] MEDS ORDERED: Albuterol 0.083% Inhal Sol (2.5 mg/3 mL) UD INH STA (19:28)
[2018-05-31] MEDS ORDERED: Albuterol 0.083% Inhal Sol (2.5 mg/3 mL) UD ONE (19:55)
[2018-05-31] MEDS ORDERED: Promethazine/Cod 6.25mg-10mg/5ml Syr UD ONE (19:56)
[2018-05-31 19:59] LABS: BASO % 0.9 % (0.0-2.0); EOS # 0.3 K/uL (0.0-0.7); EOS % 6.1 % (0.0-4.0); HEMOGLOBIN 12.9 g/dL (12.0-16.0); LYMPH # 1.5 K/uL (1.0-4.3); LYMPH % 28.7 % (20.0-40.0); MEAN CELL VOLUME 84.6 fl (81.0-99.0); MEAN CORPUSCULAR HEMOGLOBIN 27.7 pg (27.0-31.0); MEAN CORPUSCULAR HGB CONC 32.8 g/dL (33.0-37.0); MEAN PLATELET VOLUME 7.7 fl (7.2-11.7); MONO # 0.4 K/uL (0.0-0.8); MONO % 8.7 % (0.0-10.0); NEUT # 2.8 K/uL (1.8-7.0); NEUT % 55.6 % (50.0-75.0); RBC 4.65 Mil/uL (3.80-5.20); RED CELL DISTRIBUTION WIDTH 15.2 % (11.5-14.5); WHITE BLOOD COUNT 5.1 K/uL (4.8-10.8)
--- NOTE | 2018-05-31 20:51 | ED PDOC ---
HPI: Influenza Time Seen by Provider: 05/31/18 19:03 Chief Complaint: Cough, Cold, Congestion Chief Complaint (Provider): Cough, Cold, Congestion History Per: Patient Exam Limitations: no limitations Symptoms include: cough. denies: fever Additional complaint(s):: Dasha Saunders is a 42 year old female with a past medical history of gastritis, kidney stones, and PNA, who presents to the emergency department complaining of cough for past x1 month. Patient states that last week she was having left sided back pain that is worse when she coughs. She was seen here x2 weeks ago and was diagnosed with bronchitis and given antibiotics. Patient states she finished the medication but it did not relieve symptoms. She also reports to have chills but denies fever, chest pain, difficulty breathing. PMD: Arnel Arciniega Past Medical History Reviewed: Historical Data, Nursing Documentation, Vital Signs Vital Signs: Last Vital Signs Temp 98.2 F 05/31/18 18:34 Pulse 84 05/31/18 18:34 Resp 16 05/31/18 18:34 BP 108/69 05/31/18 18:34 Pulse Ox 100 05/31/18 18:34 - Medical History PMH: Arthritis (per old chart), Gastritis, Gall Bladder Disease, Kidney Stones, Pneumonia - Surgical History Surgical History: Cholecystectomy, (x4) - Family History Family History: States: Unknown Family Hx - Immunization History Hx Tetanus Toxoid Vaccination: No Hx Influenza Vaccination: Yes Hx Pneumococcal Vaccination: No - Home Medications Home Medications: Ambulatory Orders Medication Instructions Recorded Ibuprofen/Famotidine [Duexis 1 each PO Q8 #20 tablet 12/20/17 800-26.6 mg Tablet] Iron,Carb/Vit C/Vit B12/Folic 1 each PO DAILY #30 tablet 12/20/17 [Iron 100 Plus Tablet] Meclizine [Antivert] 25 mg PO DAILY PRN 5 Days tab 03/07/18 Azithromycin [Zithromax] 250 mg PO DAILY #6 tab 05/18/18 Benzonatate 200 mg PO TID PRN #20 capsule 05/18/18 Ibuprofen [Motrin Tab] 800 mg PO Q8 PRN #20 tab 05/18/18 Albuterol HFA [Ventolin HFA 90 2 puff IH [id number] #1 puff 05/31/18 mcg/actuation (8 g)] Levofloxacin [Levaquin] 500 mg PO DAILY #10 tablet 05/31/18 Promethazine HCl/Codeine 5 ml PO Q6 PRN #100 ml 05/31/18 [Promethazine-Codeine Syrup] - Allergies Allergies/Adverse Reactions: Allergies Allergy/AdvReac Type Severity Reaction Status Date / Time Penicillins Allergy Intermediate RASH Verified 05/31/18 18:34 Review of Systems ROS Statement: Except As Marked, All Systems Reviewed And Found Negative Constitutional: Positive for: Chills. Negative for: Fever Cardiovascular: Negative for: Chest Pain Respiratory: Positive for: Cough. Negative for: Other (dyspnea) Musculoskeletal: Positive for: Back Pain Physical Exam - Reviewed Nursing Documentation Reviewed: Yes Vital Signs Reviewed: Yes - Physical Exam Appears: Positive for: Non-toxic, No Acute Distress Head Exam: Positive for: ATRAUMATIC, NORMOCEPHALIC Skin: Positive for: Normal Color, Warm, Dry Eye Exam: Positive for: Normal appearance, EOMI, PERRL ENT: Positive for: Normal ENT Inspection Neck: Positive for: Normal, Painless ROM, Supple Cardiovascular/Chest: Positive for: Regular Rate, Rhythm. Negative for: Murmur Respiratory: Positive for: Normal Breath Sounds. Negative for: Respiratory Distress Gastrointestinal/Abdominal: Positive for: Normal Exam, Soft, Tenderness Back: Positive for: Other (tenderness on left scapula area) Extremity: Positive for: Normal ROM. Negative for: Pedal Edema, Deformity Neurologic/Psych: Positive for: Alert, Oriented Medical Decision Making Medical Decision Making: Time: 19:28 Impression: cough and upper back pain differential diagnosis includes but not limited to bronchitis and pneumonia plan: --BMP --B-type natriuretic peptide --Troponin I --Cbc with differential --Chest xrya --Albuterol 2.5 mg INH --Toradol 15 mg IVP --Codeine oral syrup 5 ml PO --Peak flow pre/post tx 4 X-ray shows no acute findings. Labs have come back normal and patient has been feeling better after medications. Scribe Attestation: Documented by Wes Lizarraga, acting as a scribe for Gerard Sanders MD. Provider Scribe Attestation: All medical record entries made by the Scribe were at my direction and personally dictated by me. I have reviewed the chart and agree that the record accurately reflects my personal performance of the history, physical exam, medical decision making, and the department course for this patient. I have also personally directed, reviewed, and agree with the discharge instructions and disposition. - Laboratory Results Result Diagrams: 05/31/18 19:55 05/31/18 19:55 - ECG O2 Sat by Pulse Oximetry: 100 - Progress Re-evaluation Time: 22:36 Condition: Re-examined, Improved Disposition - Clinical Impression Clinical Impression: Bronchitis - Patient ED Disposition Is Patient to be Admitted: No Doctor Will See Patient In The: Office Counseled Patient/Family Regarding: Studies Performed, Diagnosis, Need For Followup - Disposition Referrals: [facility] [Outside] Disposition: Routine/Home Disposition Time: 22:37 Condition: GOOD Additional Instructions: DASHA SAUNDERS, thank you for letting us take care of you today. Your provider was Gerard Sanders MD and you were treated for BACK PAIN, COUGH. The emergency medical care you received today was directed at your acute symptoms. If you were prescribed any medication, please fill it and take as directed. It may take several days for your symptoms to resolve. Return to the Emergency Department if your symptoms worsen, do not improve, or if you have any other problems. Please contact your doctor or call one of the physicians/clinics you have been referred to that are listed on the Patient Visit Information form that is included in your discharge packet. Bring any paperwork you were given at discharge with you along with any medications you are taking to your follow up visit. Our treatment cannot replace ongoing medical care by a primary care provider outside of the emergency department. Thank you for allowing the [facility] team to be part of your care today. If you had an X-Ray or CT scan: A Radiologist will review the ED reading if any change in treatment is needed we will contact you. If you had a blood, urine, or wound culture: It will take several days for the results, if any change in treatment is needed we will contact you. If you had an STI test: It will take 48 hours for the results. Please call after 1 week if you have not heard back. Prescriptions: Albuterol HFA [Ventolin HFA 90 mcg/actuation (8 g)] 2 puff IH [id number] #1 puff Levofloxacin [Levaquin] 500 mg PO DAILY #10 tablet Promethazine HCl/Codeine [Promethazine-Codeine Syrup] 5 ml PO Q6 PRN #100 ml PRN Reason: Cough Instructions: Acute Bronchitis Forms: [employer] [facility] (Hungarian)
[2018-05-31 20:52] LABS: B-TYPE NATRIURETIC PEPTIDE 14.1 pg/ml (0-450); BLOOD UREA NITROGEN 10 mg/dl (7-17); CALCIUM 9.3 mg/dL (8.4-10.2); GFR NON-AFRICAN AMERICAN > 60
--- NOTE | 2018-06-01 10:10 | RAD ---
Date of service: 05/31/2018 HISTORY: Cough and chest pain COMPARISON: 05/18/2018 the TECHNIQUE: Chest PA and lateral FINDINGS: LINES AND TUBES: None. LUNG AND PLEURA: The lungs are well inflated and clear. No pleural effusion or pneumothorax. HEART AND MEDIASTINUM: The heart is not enlarged. No aortic atherosclerotic calcification present. The hilar and mediastinal contours are within normal limits. SKELETAL STRUCTURES: The bony structures are within normal limits for the patient's age. VISUALIZED UPPER ABDOMEN: Normal. OTHER FINDINGS: None. IMPRESSION: No active pulmonary disease.
== END 2018-05-31 23:20 | disposition home or self-care (01) ==
LOC: H.ER 18:02
DX: J40 Bronchitis, not specified as acute or chronic (principal)
CPT/HCPCS: 71046; 80048; 81025; 83880; 84484; 85025; 94640; 96374; 99283; J1885

== ENCOUNTER 2018-08-17 19:40 | Emergency (ER) | payer SELFPAY ==
[2018-08-17 19:40] VITALS: BMI 28.9
--- NOTE | 2018-08-17 21:09 | ED PDOC ---
HPI: General Adult Time Seen by Provider: 08/17/18 20:29 Chief Complaint (Nursing): Abdominal Pain Chief Complaint (Provider): flank pain History Per: Patient History/Exam Limitations: no limitations Onset/Duration Of Symptoms: Days Current Symptoms Are (Timing): Still Present Severity: Moderate Pain Scale Rating Of: 8 Location: left flank Additional Complaint(s): 42 y/o female c/o left lower back pain and dysuria/frequency intermittently since last week, constant since tuesday with h/o uti and kidney stones. positive for nausea, chills, headache/ denies vomiting, fever. Patient denies hematuria. Patiient has not taken anything for symptoms. Past Medical History Reviewed: Historical Data, Nursing Documentation, Vital Signs Vital Signs: Last Vital Signs Temp 97.4 F L 08/17/18 19:49 Pulse 92 H 08/17/18 19:49 Resp 20 08/17/18 19:49 BP 130/85 08/17/18 19:49 Pulse Ox 100 08/17/18 19:49 - Medical History PMH: Arthritis (per old chart), Gastritis, Gall Bladder Disease, Kidney Stones, Pneumonia - Surgical History Surgical History: Cholecystectomy, (x4) - Family History Family History: States: Unknown Family Hx - Living Arrangements Living Arrangements: With Family - Immunization History Hx Tetanus Toxoid Vaccination: No Hx Influenza Vaccination: Yes Hx Pneumococcal Vaccination: No - Home Medications Home Medications: Ambulatory Orders Medication Instructions Recorded Ibuprofen/Famotidine [Duexis 1 each PO Q8 #20 tablet 12/20/17 800-26.6 mg Tablet] Iron,Carb/Vit C/Vit B12/Folic 1 each PO DAILY #30 tablet 12/20/17 [Iron 100 Plus Tablet] Meclizine [Antivert] 25 mg PO DAILY PRN 5 Days tab 03/07/18 Azithromycin [Zithromax] 250 mg PO DAILY #6 tab 05/18/18 Benzonatate 200 mg PO TID PRN #20 capsule 05/18/18 Ibuprofen [Motrin Tab] 800 mg PO Q8 PRN #20 tab 05/18/18 Albuterol HFA [Ventolin HFA 90 2 puff IH [id number] #1 puff 05/31/18 mcg/actuation (8 g)] Levofloxacin [Levaquin] 500 mg PO DAILY #10 tablet 05/31/18 Promethazine HCl/Codeine 5 ml PO Q6 PRN #100 ml 05/31/18 [Promethazine-Codeine Syrup] Cyclobenzaprine [Cyclobenzaprine 10 mg PO BID PRN #10 tab 08/18/18 HCl] Fluticasone Nasal [Flonase] 1 spry NS BID #1 spr 08/18/18 Naproxen [Naprosyn] 500 mg PO Q12 PRN #14 tablet 08/18/18 - Allergies Allergies/Adverse Reactions: Allergies Allergy/AdvReac Type Severity Reaction Status Date / Time Penicillins Allergy Intermediate RASH Verified 08/17/18 19:49 Review of Systems ROS Statement: Except As Marked, All Systems Reviewed And Found Negative Constitutional: Positive for: Chills ENT: Positive for: Other (nasal congestion) Gastrointestinal: Positive for: Nausea, Abdominal Pain Genitourinary Female: Positive for: Dysuria, Frequency Musculoskeletal: Positive for: Back Pain, Other (left flank) Neurological: Positive for: Headache Physical Exam - Reviewed Nursing Documentation Reviewed: Yes Vital Signs Reviewed: Yes - Physical Exam Appears: Positive for: Well Head Exam: Positive for: NORMAL INSPECTION Skin: Positive for: Normal Color, Dry ENT: Positive for: Nasal Congestion Neck: Positive for: Normal Cardiovascular/Chest: Positive for: Regular Rate, Rhythm Respiratory: Positive for: Normal Breath Sounds Gastrointestinal/Abdominal: Positive for: Soft, Tenderness (suprapubic tenderness) Back: Positive for: L CVA Tenderness, Muscle Spasm (left lspine paravertebral tenderness). Negative for: R CVA Tenderness, Vertebral Tenderness, Decreased ROM Extremity: Positive for: Normal ROM Neurological/Psych: Positive for: Awake, Alert, Oriented - Laboratory Results Result Diagrams: 08/17/18 22:08 08/17/18 21:45 Urine POC: Negative - ECG O2 Sat by Pulse Oximetry: 100 - Progress ED Course And Treament: MEDS: TORADOL 15MG IV ONCE ZOFRAN 4MG IV ONCE 0.9 NS LITER BOLUS LABS: CBC, CMP, UA, UPREG, UDIP, UA, U C&S On re-eval, patient states pain improved. Resting comfortably Patient educated on findings, discharged with rx Naproxen, Flexeril, Flonase Advised follow up PMD within 2-3 days Return precautions given Disposition - Clinical Impression Clinical Impression: Back pain, URI (upper respiratory infection), Abdominal discomfort - Patient ED Disposition Is Patient to be Admitted: No Counseled Patient/Family Regarding: Studies Performed, Diagnosis, Need For Followup, Rx Given - Disposition Disposition: Routine/Home Disposition Time: 00:47 Condition: IMPROVED Prescriptions: Cyclobenzaprine [Cyclobenzaprine HCl] 10 mg PO BID PRN #10 tab PRN Reason: Muscle Spasm Fluticasone Nasal [Flonase] 1 spry NS BID #1 spr Naproxen [Naprosyn] 500 mg PO Q12 PRN #14 tablet PRN Reason: Pain, Moderate (4-7) Instructions: Low Back Pain in Adults, Viral Upper Respiratory Infection, Adult (DC), Acute Abdomen (Belly Pain), Adult (DC) Forms: [facility] ED School/Work Excuse Print Language: EGYPTIAN
[2018-08-17] MEDS: Sodium Chloride 0.9% 1,000 ML IV SCH ×2 (21:34→23:20)
[2018-08-17 21:53] LABS: URINE APPEARANCE CLEAR (CLEAR); URINE BILIRUBIN NEGATIVE (NEGATIVE); URINE BLOOD NEGATIVE (NEGATIVE); URINE COLOR YELLOW (YELLOW); URINE GLUCOSE (UA) NEG (NEGATIVE); URINE LEUKOCYTE ESTERASE NEG Leu/uL (Negative); URINE PROTEIN NEGATIVE (NEGATIVE); URINE UROBILINOGEN 0.2-1.0 mg/dL (0.2-1.0)
[2018-08-17 22:09] LABS: BASO % 0.6 % (0.0-2.0); EOS # 0.3 K/uL (0.0-0.7); EOS % 3.6 % (0.0-4.0); HEMOGLOBIN 12.3 g/dL (12.0-16.0); LYMPH # 1.4 K/uL (1.0-4.3); LYMPH % 18.6 % (20.0-40.0); MEAN CELL VOLUME 85.5 fl (81.0-99.0); MEAN CORPUSCULAR HEMOGLOBIN 28.9 pg (27.0-31.0); MEAN CORPUSCULAR HGB CONC 33.8 g/dL (33.0-37.0); MEAN PLATELET VOLUME 8.2 fl (7.2-11.7); MONO # 0.8 K/uL (0.0-0.8); MONO % 10.2 % (0.0-10.0); NEUT # 5.1 K/uL (1.8-7.0); NRBC % 0.2 % (0.0-0.0); RBC 4.25 Mil/uL (3.80-5.20); RED CELL DISTRIBUTION WIDTH 14.6 % (11.5-14.5); WHITE BLOOD COUNT 7.5 K/uL (4.8-10.8)
[2018-08-17 22:39] LABS: ALB/GLOB RATIO 1.2 (1.0-2.1); ALBUMIN 3.8 g/dL (3.5-5.0); ALT/SGPT 33 U/L (9-52); AST/SGOT 27 U/L (14-36); BLOOD UREA NITROGEN 14 mg/dl (7-17); CALCIUM 9.1 mg/dL (8.4-10.2); GFR NON-AFRICAN AMERICAN > 60
[2018-08-18 01:00] VITALS: BP 104/55; PULSE 78; RESP 19; TEMP 98.7; O2SAT 99
== END 2018-08-18 01:00 | disposition home or self-care (01) ==
LOC: H.ER 19:40
DX: J06.9 Acute upper respiratory infection, unspecified (principal); M54.9 Dorsalgia, unspecified; R10.9 Unspecified abdominal pain; Z88.0 Allergy status to penicillin
CPT/HCPCS: 80053; 81003; 81025; 83690; 85025; 87086; 87804; 96361; 96374; 96375; 99284; J1885; J2405; J7030

== ENCOUNTER 2018-08-19 12:59 | Emergency (ER) | payer SELFPAY ==
[2018-08-19 12:59] VITALS: BMI 28.9
[2018-08-19 13:06] VITALS: TEMP 98.5; O2SAT 98
[2018-08-19] MEDS ORDERED: Oxycodone/Acetaminophen 5/325 mg Tab PO STA (13:25)
--- NOTE | 2018-08-19 13:29 | ED PDOC ---
HPI: General Adult Time Seen by Provider: 08/19/18 13:26 Chief Complaint (Nursing): Chest Pain Chief Complaint (Provider): left arm tingling History Per: Patient (42 y/o female here with pain noted chest /neck/back associated with movement of left arm. States she has been diagnosis with arthritis of neck and follows with neurology dr. mcpherson with rx of gabapentin/ibupofren. Notes that movement of left arm causes arm pain in surrounding area and tingling left arm.) Past Medical History Reviewed: Historical Data, Nursing Documentation, Vital Signs Vital Signs: Last Vital Signs Temp 98.5 F 08/19/18 13:03 Pulse 86 08/19/18 13:03 Resp 20 08/19/18 13:03 BP 129/84 08/19/18 13:03 Pulse Ox 98 08/19/18 13:03 - Medical History PMH: Arthritis (per old chart), Gastritis, Gall Bladder Disease, Kidney Stones, Pneumonia - Surgical History Surgical History: Cholecystectomy, (x4) - Family History Family History: States: Unknown Family Hx - Immunization History Hx Tetanus Toxoid Vaccination: No Hx Influenza Vaccination: Yes Hx Pneumococcal Vaccination: No - Home Medications Home Medications: Ambulatory Orders Medication Instructions Recorded Ibuprofen/Famotidine [Duexis 1 each PO Q8 #20 tablet 12/20/17 800-26.6 mg Tablet] Iron,Carb/Vit C/Vit B12/Folic 1 each PO DAILY #30 tablet 12/20/17 [Iron 100 Plus Tablet] Meclizine [Antivert] 25 mg PO DAILY PRN 5 Days tab 03/07/18 Azithromycin [Zithromax] 250 mg PO DAILY #6 tab 05/18/18 Benzonatate 200 mg PO TID PRN #20 capsule 05/18/18 Ibuprofen [Motrin Tab] 800 mg PO Q8 PRN #20 tab 05/18/18 Albuterol HFA [Ventolin HFA 90 2 puff IH [id number] #1 puff 05/31/18 mcg/actuation (8 g)] Levofloxacin [Levaquin] 500 mg PO DAILY #10 tablet 05/31/18 Promethazine HCl/Codeine 5 ml PO Q6 PRN #100 ml 05/31/18 [Promethazine-Codeine Syrup] Cyclobenzaprine [Cyclobenzaprine 10 mg PO BID PRN #10 tab 08/18/18 HCl] Fluticasone Nasal [Flonase] 1 spry NS BID #1 spr 08/18/18 Naproxen [Naprosyn] 500 mg PO Q12 PRN #14 tablet 08/18/18 Esomeprazole Magnesium [Nexium] 40 mg PO DAILY #30 capsule. 08/19/18 Methylprednisolone [Medrol Dose 4 mg PO DAILY #21 mg 08/19/18 Pack (21 tabs)] - Allergies Allergies/Adverse Reactions: Allergies Allergy/AdvReac Type Severity Reaction Status Date / Time Penicillins Allergy Intermediate RASH Verified 08/19/18 13:03 Review of Systems ROS Statement: Except As Marked, All Systems Reviewed And Found Negative Physical Exam - Reviewed Nursing Documentation Reviewed: Yes Vital Signs Reviewed: Yes - Physical Exam Appears: Positive for: Well, Non-toxic, No Acute Distress Head Exam: Positive for: ATRAUMATIC, NORMAL INSPECTION, NORMOCEPHALIC Skin: Positive for: Normal Color, Warm, DRY Eye Exam: Positive for: EOMI, Normal appearance, PERRL ENT: Positive for: Normal ENT Inspection Neck: Positive for: Normal, Painless ROM Cardiovascular/Chest: Positive for: Regular Rate, Rhythm Respiratory: Positive for: CNT, Normal Breath Sounds Gastrointestinal/Abdominal: Positive for: Normal Exam, Soft Back: Positive for: Normal Inspection Extremity: Positive for: Normal ROM Neurological/Psych: Positive for: Awake, Alert, Normal Tone - ECG ECG Rhythm: Positive for: Sinus Rhythm (NSR 85BPM; NO ECTOPY NO ACUTE CHANGES) O2 Sat by Pulse Oximetry: 98 - Progress ED Course And Treament: PERCOCET 5/325 MG X 1 DOSE Disposition - Clinical Impression Clinical Impression: Cervical radiculopathy - Patient ED Disposition Is Patient to be Admitted: No - Disposition Disposition: Routine/Home Disposition Time: 13:30 Condition: FAIR Prescriptions: Esomeprazole Magnesium [Nexium] 40 mg PO DAILY #30 capsule. Methylprednisolone [Medrol Dose Pack (21 tabs)] 4 mg PO DAILY #21 mg Instructions: Radiculopathy (DC) Forms: [facility] ED School/Work Excuse Print Language: JAPANESE
[2018-08-19] MEDS ORDERED: Oxycodone/Acetaminophen 5/325 mg Tab ONE (13:41)
[2018-08-19 14:02] VITALS: BP 121/74; PULSE 78; RESP 18
--- NOTE | 2018-08-20 20:09 | CARD ---
APPROVED REPORT Date of service: 08/19/2018 EKG Measurement Heart [id number] <Conclusion> Normal sinus rhythm Normal ECG
== END 2018-08-19 13:32 | disposition home or self-care (01) ==
LOC: H.ER 12:59
DX: M54.12 Radiculopathy, cervical region (principal); Z87.442 Personal history of urinary calculi; Z88.0 Allergy status to penicillin

== ENCOUNTER 2018-09-07 19:23 | Emergency (ER) | payer SELFPAY ==
[2018-09-07 19:24] VITALS: BMI 28.9
[2018-09-07 19:56] VITALS: O2SAT 99
[2018-09-07 21:08] LABS: BASO # 0.1 K/uL (0.0-0.2); BASO % 0.6 % (0.0-2.0); EOS # 0.1 K/uL (0.0-0.7); HEMOGLOBIN 13.1 g/dL (12.0-16.0); LYMPH % 8.5 % (20.0-40.0); MEAN CELL VOLUME 85.5 fl (81.0-99.0); MEAN CORPUSCULAR HEMOGLOBIN 28.7 pg (27.0-31.0); MEAN CORPUSCULAR HGB CONC 33.5 g/dL (33.0-37.0); MEAN PLATELET VOLUME 8.1 fl (7.2-11.7); MONO # 0.6 K/uL (0.0-0.8); MONO % 4.9 % (0.0-10.0); NEUT # 9.6 K/uL (1.8-7.0); PLATELET COUNT 365 K/uL (130-400); RBC 4.59 Mil/uL (3.80-5.20); RED CELL DISTRIBUTION WIDTH 14.1 % (11.5-14.5); WHITE BLOOD COUNT 11.3 K/uL (4.8-10.8)
[2018-09-07 21:21] LABS: ALB/GLOB RATIO 1.3 (1.0-2.1); ALBUMIN 4.5 g/dL (3.5-5.0); ALT/SGPT 35 U/L (9-52); AST/SGOT 30 U/L (14-36); BLOOD UREA NITROGEN 12 mg/dl (7-17); CALCIUM 9.8 mg/dL (8.4-10.2); GFR NON-AFRICAN AMERICAN > 60
--- NOTE | 2018-09-07 21:27 | ED PDOC ---
HPI: General Adult Time Seen by Provider: 09/07/18 19:59 Chief Complaint (Nursing): Headache Chief Complaint (Provider): Dizziness History Per: Patient History/Exam Limitations: no limitations Onset/Duration Of Symptoms: Other (x1 week) Current Symptoms Are (Timing): Still Present Additional Complaint(s): 43 year old female, with a history of neuropathy, hypothyroidism, and herniated discs, presents to the ER complaining of dizziness. Patient reports she was at the physical therapist today and was feeling unwell with dizziness. The physical therapist took her blood pressure, found it was elevated, and told patient she should go to the ER. Patient states, all week, she has had on and off dizziness and feeling of weakness in her legs. She claims no one sided symptoms. She states she feels a headache described as pressure and burning sensation to the back of her head which was non thunderclap and not maximal on onset. Patient took no medications [employer]ERK. PMD: Radhika Francis Past Medical History Reviewed: Historical Data, Nursing Documentation, Vital Signs Vital Signs: Last Vital Signs Temp 97.8 F 09/07/18 19:53 Pulse 97 H 09/07/18 19:53 Resp 16 09/07/18 19:53 BP 138/86 09/07/18 19:53 Pulse Ox 99 09/07/18 19:53 - Medical History PMH: Arthritis (per old chart), Gastritis, Gall Bladder Disease, Hypothyroidism, Kidney Stones, Pneumonia Other PMH: neuropathy - Surgical History Surgical History: Cholecystectomy, (x4) - Family History Family History: States: Unknown Family Hx - Immunization History Hx Tetanus Toxoid Vaccination: No Hx Influenza Vaccination: Yes Hx Pneumococcal Vaccination: No - Home Medications Home Medications: Ambulatory Orders Medication Instructions Recorded Ibuprofen/Famotidine [Duexis 1 each PO Q8 #20 tablet 12/20/17 800-26.6 mg Tablet] Iron,Carb/Vit C/Vit B12/Folic 1 each PO DAILY #30 tablet 12/20/17 [Iron 100 Plus Tablet] Meclizine [Antivert] 25 mg PO DAILY PRN 5 Days tab 03/07/18 Azithromycin [Zithromax] 250 mg PO DAILY #6 tab 05/18/18 Benzonatate 200 mg PO TID PRN #20 capsule 05/18/18 Ibuprofen [Motrin Tab] 800 mg PO Q8 PRN #20 tab 05/18/18 Albuterol HFA [Ventolin HFA 90 2 puff IH [id number] #1 puff 05/31/18 mcg/actuation (8 g)] Levofloxacin [Levaquin] 500 mg PO DAILY #10 tablet 05/31/18 Promethazine HCl/Codeine 5 ml PO Q6 PRN #100 ml 05/31/18 [Promethazine-Codeine Syrup] Cyclobenzaprine [Cyclobenzaprine 10 mg PO BID PRN #10 tab 08/18/18 HCl] Fluticasone Nasal [Flonase] 1 spry NS BID #1 spr 08/18/18 Naproxen [Naprosyn] 500 mg PO Q12 PRN #14 tablet 08/18/18 Esomeprazole Magnesium [Nexium] 40 mg PO DAILY #30 capsule. 08/19/18 Methylprednisolone [Medrol Dose 4 mg PO DAILY #21 mg 08/19/18 Pack (21 tabs)] Aspirin/Acetaminophen/Caffeine 1 each PO Q8 PRN #30 tablet 09/08/18 [Excedrin Migraine Geltab] - Allergies Allergies/Adverse Reactions: Allergies Allergy/AdvReac Type Severity Reaction Status Date / Time Penicillins Allergy Intermediate RASH Verified 08/19/18 13:03 Review of Systems ROS Statement: Except As Marked, All Systems Reviewed And Found Negative Neurological: Positive for: Weakness (in legs), Headache (pressure and burning sensation to the back of head), Dizziness Physical Exam - Reviewed Nursing Documentation Reviewed: Yes Vital Signs Reviewed: Yes - Physical Exam Appears: Positive for: Non-toxic, No Acute Distress Head Exam: Positive for: ATRAUMATIC, NORMOCEPHALIC Skin: Positive for: Normal Color, Warm, Dry Eye Exam: Positive for: Normal appearance Neck: Positive for: Normal, Painless ROM Cardiovascular/Chest: Positive for: Regular Rate, Rhythm Respiratory: Positive for: Normal Breath Sounds. Negative for: Wheezing, Respiratory Distress Gastrointestinal/Abdominal: Positive for: Normal Exam, Soft. Negative for: Tenderness Extremity: Positive for: Normal ROM Neurological/Psych: Positive for: Awake, Alert, Normal Tone, Oriented (x3), Gait (Normal), photoflash powder mixer II-XII (intact). Negative for: Motor/Sensory Deficits, Facial Droop - Laboratory Results Result Diagrams: 09/07/18 20:50 09/07/18 20:50 Lab Results: Total Bilirubin 0.2 mg/dl (0.2-1.3) 09/07/18 20:50 AST 30 U/L (14-36) 09/07/18 20:50 ALT 35 U/L (9-52) 09/07/18 20:50 Alkaline Phosphatase 104 U/L (38-126) 09/07/18 20:50 Total Protein 8.1 G/DL (6.3-8.2) 09/07/18 20:50 Albumin 4.5 g/dL (3.5-5.0) 09/07/18 20:50 Globulin 3.5 gm/dL (2.2-3.9) 09/07/18 20:50 Albumin/Globulin Ratio 1.3 (1.0-2.1) 09/07/18 20:50 - ECG O2 Sat by Pulse Oximetry: 99 (RA) Pulse Ox Interpretation: Normal Medical Decision Making Medical Decision Making: Initial Impression: Well appearing female with history of neuropathy, herniated discs, and hypothyroidism, presenting with dizziness and leg weakness. No focal neurological symptoms on exam. Patient's symptoms may be related to neuropathy vs thyroid disease. Initial Plan: --Head CT --CMP --T4 stat --TSH stat --CBC --Toradol 15mg IV [address] FINDINGS: BRAIN No acute intraparenchymal hemorrhage. No mass lesion. No CT evidence for acute territorial infarct. No midline shift or extra-axial collections. VENTRICLES: No hydrocephalus. ORBITS: The orbits are unremarkable. SINUSES AND MASTOIDS: Minimal mucosal thickening in the sphenoid sinuses, left greater than right. BONES: No fracture. SOFT TISSUES: Unremarkable. MISCELLANEOUS: No CT evidence for acute intracranial abnormality. No significant change from March 07, 2018. IMPRESSION: 1. Minimal mucosal thickening in the sphenoid sinuses, left greater than right. 2. No CT evidence for acute intracranial abnormality. 3. No significant change from March 07, 2018. --After reglan and IVF, patient's symptoms improved, patient states the toradol burned her stomach, resolved with pepcid --Encouraged patient to take plenty of fluids, use excedrin, and followup with neuro --Very well appearing, improved upon dishcharge Scribe Attestation: Documented by Slade Khoury acting as a scribe for Garrett Potter MD. Provider Scribe Attestation: All medical record entries made by the Scribe were at my direction and personally dictated by me. I have reviewed the chart and agree that the record accurately reflects my personal performance of the history, physical exam, medical decision making, and the department course for this patient. I have also personally directed, reviewed, and agree with the discharge instructions and disposition. Disposition - Clinical Impression Clinical Impression: Headache - Patient ED Disposition Is Patient to be Admitted: No Counseled Patient/Family Regarding: Studies Performed, Diagnosis, Need For Followup, Rx Given - Disposition Referrals: Jairo Skelton MD [Medical Doctor] - Radhika Toussaint MD [Family Provider] - Disposition: Routine/Home Disposition Time: 03:00 Condition: IMPROVED Prescriptions: Aspirin/Acetaminophen/Caffeine [Excedrin Migraine Geltab] 1 each PO Q8 PRN #30 tablet PRN Reason: Pain, Moderate (4-7) Instructions: Tension Headache Forms: [employer] (Citizen Of [place])
[2018-09-07 22:16] LABS: BANDS 2 % (0-2); EOSINOPHIL 1 % (0-7); LYMPHOCYTE 10 % (20-50); MONOCYTE 7 % (0-10); NEUTROPHIL 80 % (42-75); TOTAL CELLS COUNTED 100
[2018-09-07 22:17] LABS: HYPOCHROMIC SLIGHT; PLATELET ESTIMATE NORMAL (NORMAL)
[2018-09-07] MEDS ORDERED: Alum-Mag Hydrox-Simethicone Susp (30 mL) PO ONE (22:37)
[2018-09-07] MEDS ORDERED: Sodium Chloride 0.9% 1,000 ML IV STA (22:37)
[2018-09-07] MEDS ORDERED: Alum-Mag Hydrox-Simethicone Susp (30 mL) ONE (23:13)
[2018-09-08 03:09] VITALS: RESP 15
[2018-09-08 04:03] VITALS: BP 111/74; PULSE 75; TEMP 98.2
--- NOTE | 2018-09-08 11:33 | CT ---
Date of service: 09/07/2018 PROCEDURE: CT HEAD WITHOUT CONTRAST. HISTORY: neuropathy, headaches COMPARISON: 03/07/2018. TECHNIQUE: Axial computed tomography images were obtained through the head/brain without intravenous contrast. Supplemental Coronal and Sagittal projections created and reviewed. Radiation dose: Total exam DLP = 661.64 mGy-cm. This CT exam was performed using one or more of the following dose reduction techniques: Automated exposure control, adjustment of the mA and/or kV according to patient size, and/or use of iterative reconstruction technique. FINDINGS: HEMORRHAGE: No intracranial hemorrhage. BRAIN: No mass effect or edema. No atrophy or chronic microvascular ischemic changes. VENTRICLES: Unremarkable. No hydrocephalus. CALVARIUM: Unremarkable. PARANASAL SINUSES: Trace sphenoid air cell disease. MASTOID AIR CELLS: Unremarkable as visualized. No inflammatory changes. OTHER FINDINGS: None. IMPRESSION: No acute intracranial abnormalities. No significant findings to account for the clinical presentation. No significant interval change compared to the prior examination(s). Concordant results (preliminary interpretation) provided by [facility]. Procedure Completed: 21:38. Preliminary Report: Interpreted and electronically signed: 22:16. Final Interpretation: 11:29. September 08, 2018.
== END 2018-09-08 03:09 | disposition home or self-care (01) ==
LOC: H.ER 19:23
DX: R51 Headache (principal)
CPT/HCPCS: 70450; 80053; 81025; 82948; 84436; 84443; 85025; 96374; 99285; J1885; J2765; J7030

== ENCOUNTER 2018-10-06 17:55 | Emergency (ER) | payer SELFPAY ==
[2018-10-06 17:55] VITALS: BMI 28.9
[2018-10-06 18:04] VITALS: RESP 18; TEMP 98; O2SAT 100
[2018-10-06 19:18] LABS: BASO # 0.1 K/uL (0.0-0.2); BASO % 0.8 % (0.0-2.0); EOS # 0.2 K/uL (0.0-0.7); HEMOGLOBIN 12.4 g/dL (12.0-16.0); LYMPH # 2.2 K/uL (1.0-4.3); LYMPH % 26.6 % (20.0-40.0); MEAN CELL VOLUME 85.3 fl (81.0-99.0); MEAN CORPUSCULAR HEMOGLOBIN 28.5 pg (27.0-31.0); MEAN CORPUSCULAR HGB CONC 33.4 g/dL (33.0-37.0); MEAN PLATELET VOLUME 7.9 fl (7.2-11.7); MONO # 0.7 K/uL (0.0-0.8); NEUT % 61.6 % (50.0-75.0); NRBC % 0.1 % (0.0-0.0); RBC 4.35 Mil/uL (3.80-5.20); WHITE BLOOD COUNT 8.1 K/uL (4.8-10.8)
[2018-10-06 19:31] LABS: ALB/GLOB RATIO 1.4 (1.0-2.1); ALBUMIN 4.2 g/dL (3.5-5.0); ALT/SGPT 57 U/L (9-52); AST/SGOT 44 U/L (14-36); BLOOD UREA NITROGEN 16 mg/dl (7-17); CALCIUM 9.1 mg/dL (8.4-10.2); GFR NON-AFRICAN AMERICAN > 60
--- NOTE | 2018-10-06 19:35 | ED PDOC ---
HPI: Influenza Time Seen by Provider: 10/06/18 18:12 Chief Complaint: Chest Pain Chief Complaint (Provider): weakness History Per: Patient Exam Limitations: no limitations Onset/Duration Of Symptoms: Days (5) Symptoms include: headache, bodyaches, sore throat, cough, nasal congestion, diarrhea, chest pain (with shortness of breath), other (loss of appetitie). denies: fever, vomiting Sick Contacts (Context): None Past Medical History Reviewed: Historical Data, Nursing Documentation, Vital Signs Vital Signs: Last Vital Signs Temp 98 F 10/06/18 18:02 Pulse 89 10/06/18 18:02 Resp 18 10/06/18 18:02 BP 117/74 10/06/18 18:02 Pulse Ox 100 10/06/18 18:02 - Medical History PMH: Arthritis (per old chart), Gastritis, Gall Bladder Disease, Hypothyroidism, Kidney Stones, Pneumonia - Surgical History Surgical History: Cholecystectomy, (x4) - Family History Family History: States: Unknown Family Hx - Social History Current smoker - smoking cessation education provided: No Alcohol: None Drugs: Denies - Immunization History Hx Tetanus Toxoid Vaccination: No Hx Influenza Vaccination: Yes Hx Pneumococcal Vaccination: No - Home Medications Home Medications: Ambulatory Orders Medication Instructions Recorded Ibuprofen/Famotidine [Duexis 1 each PO Q8 #20 tablet 12/20/17 800-26.6 mg Tablet] Iron,Carb/Vit C/Vit B12/Folic 1 each PO DAILY #30 tablet 12/20/17 [Iron 100 Plus Tablet] Meclizine [Antivert] 25 mg PO DAILY PRN 5 Days tab 03/07/18 Azithromycin [Zithromax] 250 mg PO DAILY #6 tab 05/18/18 Benzonatate 200 mg PO TID PRN #20 capsule 05/18/18 Ibuprofen [Motrin Tab] 800 mg PO Q8 PRN #20 tab 05/18/18 Albuterol HFA [Ventolin HFA 90 2 puff IH [id number] #1 puff 05/31/18 mcg/actuation (8 g)] Levofloxacin [Levaquin] 500 mg PO DAILY #10 tablet 05/31/18 Promethazine HCl/Codeine 5 ml PO Q6 PRN #100 ml 05/31/18 [Promethazine-Codeine Syrup] Cyclobenzaprine [Cyclobenzaprine 10 mg PO BID PRN #10 tab 08/18/18 HCl] Fluticasone Nasal [Flonase] 1 spry NS BID #1 spr 08/18/18 Naproxen [Naprosyn] 500 mg PO Q12 PRN #14 tablet 08/18/18 Esomeprazole Magnesium [Nexium] 40 mg PO DAILY #30 capsule. 08/19/18 Methylprednisolone [Medrol Dose 4 mg PO DAILY #21 mg 08/19/18 Pack (21 tabs)] Aspirin/Acetaminophen/Caffeine 1 each PO Q8 PRN #30 tablet 09/08/18 [Excedrin Migraine Geltab] Acetaminophen [Tylenol Extra 1,000 mg PO Q6 PRN #100 tablet 10/06/18 Strength] Ibuprofen [Motrin Tab] 600 mg PO Q8 PRN #30 tab 10/06/18 - Allergies Allergies/Adverse Reactions: Allergies Allergy/AdvReac Type Severity Reaction Status Date / Time Penicillins Allergy Intermediate RASH Verified 10/06/18 18:01 Review of Systems ROS Statement: Except As Marked, All Systems Reviewed And Found Negative (and as per HPI) Constitutional: Positive for: Fever, Chills, Weakness, Malaise ENT: Positive for: Nose Congestion, Throat Pain Cardiovascular: Positive for: Chest Pain, Light Headedness Respiratory: Positive for: Cough, Shortness of Breath. Negative for: Sputum Gastrointestinal: Positive for: Nausea, Abdominal Pain. Negative for: Vomiting Physical Exam - Reviewed Nursing Documentation Reviewed: Yes Vital Signs Reviewed: Yes - Physical Exam Appears: Positive for: Non-toxic, No Acute Distress Head Exam: Positive for: ATRAUMATIC, NORMOCEPHALIC Skin: Positive for: Warm, Dry Eye Exam: Positive for: EOMI, PERRL ENT: Negative for: Pharyngeal Erythema, Tonsillar Exudate Neck: Positive for: Painless ROM, Supple Cardiovascular/Chest: Positive for: Regular Rate, Rhythm. Negative for: Murmur Respiratory: Positive for: Normal Breath Sounds. Negative for: Respiratory Distress Gastrointestinal/Abdominal: Positive for: Soft. Negative for: Tenderness Back: Positive for: Normal Inspection. Negative for: Decreased ROM Extremity: Positive for: Normal ROM. Negative for: Deformity Lymphatic: Negative for: Adenopathy Neurological/Psych: Positive for: Awake, Alert. Negative for: Motor/Sensory Deficits - Laboratory Results Result Diagrams: 10/06/18 19:12 10/06/18 19:12 Lab Results: D-Dimer, Quantitative 334 ng/mlDDU (0-230) H 10/06/18 19:12 Total Bilirubin 0.2 mg/dl (0.2-1.3) 10/06/18 19:12 AST 44 U/L (14-36) H D 10/06/18 19:12 ALT 57 U/L (9-52) H D 10/06/18 19:12 Alkaline Phosphatase 88 U/L (38-126) 10/06/18 19:12 Total Protein 7.2 G/DL (6.3-8.2) 10/06/18 19:12 Albumin 4.2 g/dL (3.5-5.0) 10/06/18 19:12 Globulin 3.0 gm/dL (2.2-3.9) 10/06/18 19:12 Albumin/Globulin Ratio 1.4 (1.0-2.1) 10/06/18 19:12 - ECG O2 Sat by Pulse Oximetry: 100 Pulse Ox Interpretation: Normal - Radiology X-Ray: Interpreted by Pr X-Ray Interpretation: No Acute Disease - Progress ED Course And Treament: Labs demonstrate +mono, +ddimer. NICKY MORA Exam Date: Oct 06, 2018 8:16:31 PM EDT Modality Type: CT\SR Description: CTA CHEST Gender: F Laterality: Not applicable : 79 Referring Physician: Sherri Gaspar EXAM: CTA Chest with Intravenous Contrast for Pulmonary Embolism CLINICAL HISTORY: Ob chest pressure, elevated ddimer r/o PE TECHNIQUE: Axial CTA images of the chest with intravenous contrast using a pulmonary embolism protocol. Reconstructed images were created and reviewed. 309.06 mGy-cm CONTRAST: With; Type and dosage was administered without incident. COMPARISON: None provided. FINDINGS: PULMONARY ARTERIES No evidence of central or segmental pulmonary embolism is seen. AORTA There is no evidence for aneurysm or dissection of the thoracic aorta. LUNGS The lungs appear clear. PLEURAL SPACES No pneumothorax evident. No pleural effusions. HEART Heart size is within normal limits. No significant pericardial effusion. LYMPH NODES No lymphadenopathy is evident. BONES No focal osseous abnormality or acute fracture. UPPER ABDOMEN Images of the upper abdomen are unremarkable. IMPRESSION: Unremarkable pulmonary embolism protocol CTA of the chest. Electronically signed on Oct 06, 2018 8:42:42 PM EDT by: Panchito Martinez M.D., Certified by [facility], Diagnostic Radiology DW pt findings and plan of care. Rest, fluids, symptomatic treatment, f/u clinic/Dr Arciniega Disposition - Clinical Impression Clinical Impression: Infectious mononucleosis Counseled Patient/Family Regarding: Studies Performed, Diagnosis, Need For Followup - Disposition Referrals: Arnel Arciniega MD [Family Provider] - [facility] [Outside] Disposition: Routine/Home Disposition Time: 20:50 Condition: STABLE Additional Instructions: NECESITA KARTHIK MUCHOS FLUIDOS Y DESCANSE SOLO MEDICINA A NECESITA PARA DOLOR O FIEBRE VISITA A LA OFICINA DE DR ARCINIEGA OR A LA [facility] Prescriptions: Acetaminophen [Tylenol Extra Strength] 1,000 mg PO Q6 PRN #100 tablet PRN Reason: FEVER OR PAIN Ibuprofen [Motrin Tab] 600 mg PO Q8 PRN #30 tab PRN Reason: bodyaches Instructions: Mononucleosis (DC) Forms: [facility] ED School/Work Excuse Print Language: SAMOAN
[2018-10-06] MEDS ORDERED: Iodixanol 320 MG/ML 100 ML BOTTLE IV ONE (19:53)
[2018-10-06] MEDS ORDERED: Sodium Chloride 0.9% 50 ML IV ONE (19:53)
[2018-10-06 21:15] VITALS: BP 103/63; PULSE 69
--- NOTE | 2018-10-07 10:36 | CT ---
Date of service: 10/06/2018 PROCEDURE: CT Chest with contrast (Pulmonary Angiogram) HISTORY: SOB with chest pressure; elevated D -dimer COMPARISON: Correlation made with concurrent chest radiograph obscured compound 4 times TECHNIQUE: Axial computed tomography images were obtained of the chest in the pulmonary arterial phase of enhancement. Coronal and sagittal reformatted images were created and reviewed. Intravenous contrast dose: Cc Visipaque 320 contrast material Radiation dose: Total exam DLP = 309.05 mGy-cm. This CT exam was performed using one or more of the following dose reduction techniques: Automated exposure control, adjustment of the mA and/or kV according to patient size, and/or use of iterative reconstruction technique. FINDINGS: PULMONARY ARTERIES: Unremarkable. No pulmonary embolism. Pulmonary trunk appears mildly dilated measuring 3.3 cm. Rule out underlying pulmonary arterial hypertension.. Note made of a small bubble of air within the anterior aspect of the pulmonary trunk likely due to intravenous injection the AORTA: No acute findings. No thoracic aortic aneurysm. No aortic atherosclerotic calcification or mural plaque present. LUNGS: Mild passive/dependent type atelectasis in the posterior upper and lower lung lomax PLEURAL SPACES: Unremarkable. No effusion or pneumothorax. HEART: Heart appears enlarged.. No significant pericardial effusion. LYMPH NODES: No lymphadenopathy. BONES, CHEST WALL: Mild multilevel degenerative spondylosis of the thoracic spine. There is a mild dextroscoliosis centered in the mid thoracic region. OTHER FINDINGS: Small hiatal hernia Cholecystectomy. IMPRESSION: No evidence of acute central pulmonary embolus. Mildly dilated pulmonary trunk; rule out underlying pulmonary arterial hypertension. Cardiomegaly.
--- NOTE | 2018-10-07 14:35 | RAD ---
Date of service: 10/06/2018 HISTORY: chest pain sob COMPARISON: Comparison chest dated 05/31/2018. TECHNIQUE: Chest PA and lateral views FINDINGS: LUNGS: Poor inspiration with low lung volumes common crowded bronchovascular markings and bibasilar atelectasis. PLEURA: No significant pleural effusion identified. No pneumothorax apparent. CARDIOVASCULAR: No aortic atherosclerotic calcification present. Normal cardiac size. No pulmonary vascular congestion. OSSEOUS STRUCTURES: Minor multilevel degenerative spondylosis of the thoracic spine VISUALIZED UPPER ABDOMEN: Normal. OTHER FINDINGS: None. IMPRESSION: Poor inspiration with low lung volumes common crowded bronchovascular markings and bibasilar atelectasis.
--- NOTE | 2018-10-07 17:35 | CARD ---
APPROVED REPORT Date of service: 10/06/2018 EKG Measurement Heart [id number] <Conclusion> Normal sinus rhythm Normal ECG
== END 2018-10-06 20:54 | disposition home or self-care (01) ==
LOC: H.ER 17:55
DX: B27.90 Infectious mononucleosis, unspecified without complication (principal); E03.9 Hypothyroidism, unspecified; Z88.0 Allergy status to penicillin
CPT/HCPCS: 71046; 71275; 80053; 81025; 83735; 84100; 84443; 85025; 85378; 86308; 87040; 87804; 93005; 99284; Q9967

== ENCOUNTER 2018-10-18 14:22 | Emergency (ER) | payer SELFPAY ==
[2018-10-18 14:23] VITALS: BMI 28.9
[2018-10-18 14:37] VITALS: RESP 16
--- NOTE | 2018-10-18 14:49 | ED PDOC ---
HPI: Chest Pain Time Seen by Provider: 10/18/18 14:37 Chief Complaint (Nursing): Chest Pain History Per: Patient Onset/Duration Of Symptoms: Days (2) Current Symptoms Are (Timing): Intermittent Episodes Severity: Mild Quality: Tightness Associated Symptoms: denies: Dyspnea Modifying Factors: None Exacerbating Factors: Deep Breathing Additional Complaint(s): Left sided chest pain radiating to back x 2 days. Denies cough or SOB. denies fever. Seen here 10/06 with similar c/o CTA chest neg for PE. Had echocardiogram yesterday. Past Medical History Vital Signs: Last Vital Signs Temp 98.5 F 10/18/18 14:30 Pulse 89 10/18/18 14:30 Resp 16 10/18/18 14:30 BP 126/81 10/18/18 14:30 Pulse Ox 98 10/18/18 14:30 Primary Care Provider: Rusty Al - Medical History PMH: Arthritis (per old chart), Gastritis, Gall Bladder Disease, Hypothyroidism, Kidney Stones, Pneumonia Other PMH: Lupus - Surgical History Surgical History: Cholecystectomy, (x4) - Family History Family History: States: Unknown Family Hx - Immunization History Hx Tetanus Toxoid Vaccination: No Hx Influenza Vaccination: Yes Hx Pneumococcal Vaccination: No - Home Medications Home Medications: Ambulatory Orders Medication Instructions Recorded Ibuprofen/Famotidine [Duexis 1 each PO Q8 #20 tablet 12/20/17 800-26.6 mg Tablet] Iron,Carb/Vit C/Vit B12/Folic 1 each PO DAILY #30 tablet 12/20/17 [Iron 100 Plus Tablet] Meclizine [Antivert] 25 mg PO DAILY PRN 5 Days tab 03/07/18 Azithromycin [Zithromax] 250 mg PO DAILY #6 tab 05/18/18 Benzonatate 200 mg PO TID PRN #20 capsule 05/18/18 Ibuprofen [Motrin Tab] 800 mg PO Q8 PRN #20 tab 05/18/18 Albuterol HFA [Ventolin HFA 90 2 puff IH [id number] #1 puff 05/31/18 mcg/actuation (8 g)] Levofloxacin [Levaquin] 500 mg PO DAILY #10 tablet 05/31/18 Promethazine HCl/Codeine 5 ml PO Q6 PRN #100 ml 12/19/18 [Promethazine-Codeine Syrup] Cyclobenzaprine [Cyclobenzaprine 10 mg PO BID PRN #10 tab 08/18/18 HCl] Fluticasone Nasal [Flonase] 1 spry NS BID #1 spr 08/18/18 Naproxen [Naprosyn] 500 mg PO Q12 PRN #14 tablet 08/18/18 Esomeprazole Magnesium [Nexium] 40 mg PO DAILY #30 capsule. 08/19/18 Methylprednisolone [Medrol Dose 4 mg PO DAILY #21 mg 08/19/18 Pack (21 tabs)] Aspirin/Acetaminophen/Caffeine 1 each PO Q8 PRN #30 tablet 09/08/18 [Excedrin Migraine Geltab] Acetaminophen [Tylenol Extra 1,000 mg PO Q6 PRN #100 tablet 10/06/18 Strength] Ibuprofen [Motrin Tab] 600 mg PO Q8 PRN #30 tab 10/06/18 - Allergies Allergies/Adverse Reactions: Allergies Allergy/AdvReac Type Severity Reaction Status Date / Time Penicillins Allergy Intermediate RASH Verified 10/06/18 18:01 Review of Systems ROS Statement: Except As Marked, All Systems Reviewed And Found Negative Cardiovascular: Positive for: Chest Pain Physical Exam - Reviewed Nursing Documentation Reviewed: Yes Vital Signs Reviewed: Yes - Physical Exam Appears: Positive for: Non-toxic, No Acute Distress Head Exam: Positive for: ATRAUMATIC, NORMAL INSPECTION, NORMOCEPHALIC Skin: Positive for: Normal Color, Warm, DRY Eye Exam: Positive for: EOMI, Normal appearance, PERRL ENT: Positive for: Normal ENT Inspection Neck: Positive for: Normal, Painless ROM Cardiovascular/Chest: Positive for: Regular Rate, Rhythm. Negative for: Chest Non Tender (Ant chest wall tenderness) Respiratory: Positive for: CNT, Normal Breath Sounds Gastrointestinal/Abdominal: Positive for: Normal Exam, Soft. Negative for: Tenderness, Organomegaly Back: Positive for: Normal Inspection Extremity: Positive for: Normal ROM Neurological/Psych: Positive for: Awake, Alert, Normal Tone - ECG O2 Sat by Pulse Oximetry: 98 Disposition - Clinical Impression Clinical Impression: Chest pain - Patient ED Disposition Is Patient to be Admitted: Transfer of Care - Disposition Disposition: Transfer of Care Disposition Time: 15:00 Condition: FAIR Patient Signed Over To: Mak Hogue (Pending labs and xray)
[2018-10-18 15:21] LABS: BASO # 0.1 K/uL (0.0-0.2); BASO % 1.1 % (0.0-2.0); EOS # 0.3 K/uL (0.0-0.7); EOS % 3.7 % (0.0-4.0); HEMOGLOBIN 12.6 g/dL (12.0-16.0); LYMPH # 1.1 K/uL (1.0-4.3); LYMPH % 15.4 % (20.0-40.0); MEAN CELL VOLUME 85.3 fl (81.0-99.0); MEAN CORPUSCULAR HEMOGLOBIN 27.7 pg (27.0-31.0); MEAN CORPUSCULAR HGB CONC 32.5 g/dL (33.0-37.0); MEAN PLATELET VOLUME 7.8 fl (7.2-11.7); MONO # 0.6 K/uL (0.0-0.8); MONO % 8.4 % (0.0-10.0); NEUT # 5.1 K/uL (1.8-7.0); NEUT % 71.4 % (50.0-75.0); RBC 4.54 Mil/uL (3.80-5.20); RED CELL DISTRIBUTION WIDTH 14.2 % (11.5-14.5); WHITE BLOOD COUNT 7.1 K/uL (4.8-10.8)
--- NOTE | 2018-10-18 15:22 | RAD ---
Date of service: 10/18/2018 HISTORY: Chest pain COMPARISON: 10/06/2018 TECHNIQUE: Chest PA and lateral views FINDINGS: LUNGS: No active pulmonary disease. PLEURA: No significant pleural effusion identified. No pneumothorax apparent. CARDIOVASCULAR: There is presence of aortic atherosclerotic calcification on x-ray. Heart size appears top-normal. No significant appearing pulmonary venous congestion. OSSEOUS STRUCTURES: S-shaped thoracolumbar scoliosis. Thoracic spondylosis. VISUALIZED UPPER ABDOMEN: Right upper quadrant cholecystectomy clips. OTHER FINDINGS: None. IMPRESSION: No acute cardiopulmonary pathology noted. Other findings as above.
--- NOTE | 2018-10-18 16:04 | ED PDOC ---
- Laboratory Results Result Diagrams: 10/18/18 15:05 10/18/18 15:05 Lab Results: Troponin I < 0.0120 ng/mL (0.00-0.120) 10/18/18 15:05 Interpretation Of Abn Labs: 3.5 k - ECG ECG: Positive for: Interpreted By Me, Viewed By Me ECG Rhythm: Positive for: Normal QRS, Normal ST Segment, Sinus Rhythm O2 Sat by Pulse Oximetry: 98 Pulse Ox Interpretation: Normal - Radiology X-Ray: Read By Radiologist X-Ray Interpretation: No Acute Disease - Progress ED Course And Treament: 1500: Stable. AAOx3. Pain free. Took over care from Dr. Doe. Fu on labs and imaging. Pt. with chest pain. Had cta and no acut findings. CTA neg 10/06/18. Here for same that time and dc with neg lab work as well. 1622: Pain free. Tolerated PO. Fu with pcp. Has mono. Pt. to take symptomatic tx and see pcp without fail in 3 days. Disposition Counseled Patient/Family Regarding: Studies Performed, Diagnosis, Need For Followup, Rx Given - Clinical Impression Clinical Impression: Chest pain, Mononucleosis, Hypokalemia - POA Present On Arrival: None - Disposition Referrals: [facility] [place] [facility] [Outside] - 10/19/18 Disposition: Routine/Home Disposition Time: 16:33 Condition: STABLE Additional Instructions: Return if not better in 3 days. Prescriptions: Ibuprofen [Motrin] 600 mg PO TID 7 Days tab Instructions: Chest Pain, Mononucleosis, Hypokalemia Forms: [facility] ED School/Work Excuse Print Language: MALAYSIAN
[2018-10-18 16:09] LABS: ALB/GLOB RATIO 1.4 (1.0-2.1); ALBUMIN 4.4 g/dL (3.5-5.0); ALT/SGPT 30 U/L (9-52); AST/SGOT 27 U/L (14-36); BLOOD UREA NITROGEN 13 mg/dl (7-17); CALCIUM 8.9 mg/dL (8.4-10.2); GFR NON-AFRICAN AMERICAN > 60
[2018-10-18] MEDS ORDERED: Potassium Chloride 20 mEq ER Tab PO ONE ×2 (16:30→16:46)
[2018-10-18 16:50] VITALS: BP 122/71; PULSE 81; TEMP 1638; O2SAT 99
== END 2018-10-18 17:00 | disposition home or self-care (01) ==
LOC: H.ER 14:22
DX: R07.9 Chest pain, unspecified (principal); E87.6 Hypokalemia; B27.90 Infectious mononucleosis, unspecified without complication